=== PATIENT | female | born 1960 | race Caucasian/White ===

== ENCOUNTER 2018-10-29 12:16 | Emergency (ER) | payer BC, SELFPAY ==
--- NOTE | 2018-10-29 13:20 | RAD REPORT ---
EXAM DESCRIPTION: CT - Head Brain Wo Cont - 10/29/2018 1:14 pm CLINICAL HISTORY: HEADACHE Hypertension, headache. COMPARISON: No comparisons TECHNIQUE: All CT scans are performed using dose optimization technique as appropriate and may inclu de automated exposure control or mA/KV adjustment according to patient size. FINDINGS: No intracranial hemorrhage, hydrocephalus or extra-axial fluid collection.No areas of brai n edema or evidence of midline shift. The paranasal sinuses and mastoids are clear. The calvarium is intact. IMPRESSION: No acute intracranial abnormality.
[2018-10-29] MEDS ORDERED: cloNIDine HCl 0.1 MG TAB ONE (13:27)
--- NOTE | 2018-10-29 13:49 | RAD REPORT ---
EXAM DESCRIPTION: RAD - Chest Single View - 10/29/2018 1:24 pm CLINICAL HISTORY: hypertension Chest pain. COMPARISON: Chest Pa And Lat (2 Views) dated 12/03/2016 FINDINGS: Portable technique limits examination quality. The lungs are grossly clear. The heart is normal in size. No displaced fractures. IMPRESSION: No acute intrathoracic process suspected.
[2018-10-29 14:17] LABS: Absolute Lymphocytes (CBC) 1.4 K/uL (0.7-4.9); Absolute Monocytes 0.5 K/uL (0.1-1.3); Absolute Neutrophil 2.3 K/uL (1.8-8.0); Basophils % 0.7 % (0-1.3); Eosinophils % 1.3 % (0-4.4); Hematocrit 38.2 % (36.0-45.0); Lymphocytes % 32.8 % (15.3-44.8); MCH 32.7 pg (27.0-35.0); MCV 95.2 fL (80-100); MPV 9.3 fL (7.6-11.3); Monocytes % 10.8 % (3.3-12.3); Protime INR 0.99; RBC Red Blood Cell Count 4.02 M/uL (3.86-4.86)
[2018-10-29 14:30] LABS: BUN Blood Urea Nitrogen 14 mg/dL (7-18); Bicarbonate 27 mmol/L (21-32); Glucose Level 85 mg/dL (74-106); NT PRO-BNP 202 pg/mL (<125); Potassium 3.6 mmol/L (3.5-5.1); Sodium Level 141 mmol/L (136-145); Troponin (Emerg Dept Use Only) < 0.02 ng/mL (0.0-0.045)
--- NOTE | 2018-10-29 16:28 | ER ---
Nurse's Notes [facility] Name: Dara Giron Age: 57 yrs Sex: Female : 1960 Arrival Date: 10/29/2018 Time: 12:21 Bed 5 Private MD: None, None Diagnosis: Essential (primary) hypertension Presentation: 10/29 12:43 Presenting complaint: Patient states: "I went to a clinic for a pap smear and they said aa5 to come to the ER because my blood pressure was too high". Pt reports BP reading of 188/119 and 191/130. Pt c/o headache. Transition of care: patient was not received from another setting of care. Onset of symptoms was October 29, 2018. Risk Assessment: Do you want to hurt yourself or someone else? Patient reports no desire to harm self or others. Initial Sepsis Screen: Does the patient meet any 2 criteria? No. Patient's initial sepsis screen is negative. Does the patient have a suspected source of infection? No. Patient's initial sepsis screen is negative. Care prior to arrival: None. 12:43 Method Of Arrival: Ambulatory aa5 12:43 Acuity: LUI 3 aa5 Historical: - Allergies: 12:46 No Known Allergies; aa5 - Home Meds: 12:46 Paxil Oral for Obsessive-Compulsive Disorder [Active]; aa5 - PMHx: 12:46 OCD; aa5 - PSHx: 12:46 right foot with screws and plates; aa5 - Immunization history:: Adult Immunizations unknown. - Social history:: Smoking status: Patient uses tobacco products, smokes one-half pack cigarettes per day. - Ebola Screening: : No symptoms or risks identified at this time. Screenin:10 Abuse screen: Denies threats or abuse. Denies injuries from another. Nutritional jl7 screening: No deficits noted. Tuberculosis screening: No symptoms or risk factors identified. Fall Risk IV access (20 points). Total Leach Fall Scale indicates No Risk (0-24 pts). Assessment: 13:10 General: Appears in no apparent distress. uncomfortable, Behavior is cooperative, jl7 appropriate for age, anxious. Pain: Complains of pain in Headache Pain currently is 5 out of 10 on a pain scale. Neuro: Level of Consciousness is awake, alert, obeys commands, Oriented to person, place, time, situation, Channel Process Supervisor are equal bilaterally Moves all extremities. Full function Gait is steady, Speech is normal, Facial symmetry appears normal. Cardiovascular: Patient's skin is warm and dry. Respiratory: Airway is patent Respiratory effort is even, unlabored, Respiratory pattern is regular, symmetrical. GI: No signs and/or symptoms were reported involving the gastrointestinal system. : No signs and/or symptoms were reported regarding the genitourinary system. EENT: No signs and/or symptoms were reported regarding the EENT system. Derm: Skin is pink, warm \\T\\ dry. Musculoskeletal: No signs and/or symptoms reported regarding the musculoskeletal system. 14:07 Reassessment: Patient appears in no apparent distress at this time. No changes from jl7 previously documented assessment. Patient and/or family updated on plan of care and expected duration. Pain level reassessed. Patient is alert, oriented x 3, equal unlabored respirations, skin warm/dry/pink. Vital Signs: 12:47 BP 160 / 113; Pulse 79; Resp 16 S; Temp 98.3(TE); Pulse Ox 100% on R/A; Weight 50.8 kg aa5 (R); Height 5 ft. 2 in. (157.48 cm) (R); Pain 5/10; 13:10 BP 210 / 111; Pulse 76; Resp 16 S; Pulse Ox 99% on R/A; jl7 14:06 BP 167 / 93; Pulse 72; Resp 16 S; Pulse Ox 97% on R/A; jl7 16:00 BP 128 / 84; Pulse 70; Resp 18; Pulse Ox 100% on R/A; hj 12:47 Body Mass Index 20.48 (50.80 kg, 157.48 cm) aa5 ED Course: 12:21 Patient arrived in ED. mr 12:21 None, None is Private Physician. mr 12:43 Arm band placed on. aa5 12:45 Triage completed. aa5 12:48 Neeta Vera FNP-C is [facility]. kb 12:48 Pollo Drake MD is Attending Physician. kb 12:49 Manjinder Rain RN is Primary Nurse. jl7 13:08 Missed attempt(s): 22 gauge in right hand. Bleeding controlled, band aid applied, dh3 catheter tip intact. 13:10 Patient has correct armband on for positive identification. Placed in gown. Bed in low jl7 position. Call light in reach. Side rails up X2. resident doctor on. Pulse ox on. NIBP on. Warm blanket given. 13:10 EKG done, by ED staff, reviewed by Neeta DE LA TORRE. [facility] 13:13 CT Head Brain wo Cont In Process Unspecified. EDMS 13:20 CT completed. Patient tolerated procedure well. Patient moved to CT via wheelchair. vr Patient moved to radiology via wheelchair. 13:22 X-ray completed. Portable x-ray completed in exam room. Patient tolerated procedure mh1 well. 13:23 XRAY Chest (1 view) In Process Unspecified. EDMS 13:48 Missed attempt(s): 24 gauge in left hand. jl7 15:58 Repeat lab(s) drawn. by me, sent to lab. [facility] 16:02 REPEAT EKG WAS DONE. [facility] 16:37 No provider procedures requiring assistance completed. Patient did not have IV access hj during this emergency room visit. Administered Medications: 13:38 Drug: cloNIDine 0.2 mg Route: PO; 7 14:06 Follow up: Response: No adverse reaction; Blood pressure is lowered [facility] Outcome: 16:27 Discharge ordered by . kb 16:37 Discharged to home ambulatory. 16:37 Condition: stable 16:37 Discharge instructions given to patient, Instructed on discharge instructions, follow up and referral plans. medication usage, Demonstrated understanding of instructions, follow-up care, medications, Prescriptions given X 1. 16:37 Patient left the ED. Signatures: Dispatcher [employer] EDNC Neeta Vera FNP-C FNP-Pamela Karlene Saini Martha 1 Laura Bullock, RN RN aa5 Marlen Anthony Irineo Cruz RN RN hj Leal, Jahala, RN RN jl7 Salima Kaufman [facility] Monik Hogue [facility]
--- NOTE | 2018-10-29 16:28 | EDPHYS ---
Physician Documentation [facility] Name: Dara Giron Age: 57 yrs Sex: Female : 1960 Arrival Date: 10/29/2018 Time: 12:21 Bed 5 Private MD: None, None ED Physician Pollo Drake HPI: 10/29 15:29 This 57 yrs old Female presents to ER via Ambulatory with complaints of High kb Blood Pressure. 15:29 The patient has elevated blood pressure and discovered this at a physician's office, kb and sent to the emergency department for evaluation. Onset: The symptoms/episode began/occurred today. Associated signs and symptoms: Pertinent positives: headache, Pertinent negatives: chest pain, dizziness, dyspnea, lightheadedness, nausea, visual changes, vomiting, weakness. The patient has not experienced similar symptoms in the past. The patient has been recently seen by a physician: with different complaint(s). Pt went to have PAP smear today and her BP was high when they checked it so they sent her here for evaluation. States she has had a headache today, but thought it was because she hadn't eaten today. Pt had hypertension 20 years ago when she smoked and drank, but was able to get off of her medication when she became sober. . Historical: - Allergies: 12:46 No Known Allergies; aa5 - Home Meds: 12:46 Paxil Oral for Obsessive-Compulsive Disorder [Active]; aa5 - PMHx: 12:46 OCD; aa5 - PSHx: 12:46 right foot with screws and plates; aa5 - Immunization history:: Adult Immunizations unknown. - Social history:: Smoking status: Patient uses tobacco products, smokes one-half pack cigarettes per day. - Ebola Screening: : No symptoms or risks identified at this time. ROS: 15:28 Constitutional: Negative for fever, chills, and weight loss, ENT: Negative for injury, kb pain, and discharge, Neck: Negative for injury, pain, and swelling, Cardiovascular: Negative for chest pain, palpitations, and edema, Respiratory: Negative for shortness of breath, cough, wheezing, and pleuritic chest pain, Abdomen/GI: Negative for abdominal pain, nausea, vomiting, diarrhea, and constipation, Back: Negative for injury and pain, : Negative for injury, bleeding, discharge, and swelling, MS/Extremity: Negative for injury and deformity, Skin: Negative for injury, rash, and discoloration. 15:28 Neuro: Positive for headache, Negative for altered mental status, dizziness, gait disturbance, hearing loss, loss of consciousness, numbness, seizure activity, speech changes, syncope, near syncope, tingling, tinnitus, tremor, visual changes, weakness. Exam: 15:29 Constitutional: This is a well developed, well nourished patient who is awake, alert, kb and in no acute distress. Head/Face: Normocephalic, atraumatic. Eyes: Pupils equal round and reactive to light, extra-ocular motions intact. Lids and lashes normal. Conjunctiva and sclera are non-icteric and not injected. Cornea within normal limits. Periorbital areas with no swelling, redness, or edema. ENT: Nares patent. No nasal discharge, no septal abnormalities noted. Tympanic membranes are normal and external auditory canals are clear. Oropharynx with no redness, swelling, or masses, exudates, or evidence of obstruction, uvula midline. Mucous membranes moist. Neck: Trachea midline, no thyromegaly or masses palpated, and no cervical lymphadenopathy. Supple, full range of motion without nuchal rigidity, or vertebral point tenderness. No Meningismus. Chest/axilla: Normal chest wall appearance and motion. Nontender with no deformity. No lesions are appreciated. Cardiovascular: Regular rate and rhythm with a normal S1 and S2. No gallops, murmurs, or rubs. Normal PMI, no JVD. No pulse deficits. Respiratory: Lungs have equal breath sounds bilaterally, clear to auscultation and percussion. No rales, rhonchi or wheezes noted. No increased work of breathing, no retractions or nasal flaring. Abdomen/GI: Soft, non-tender, with normal bowel sounds. No distension or tympany. No guarding or rebound. No evidence of tenderness throughout. Back: No spinal tenderness. No costovertebral tenderness. Full range of motion. Skin: Warm, dry with normal turgor. Normal color with no rashes, no lesions, and no evidence of cellulitis. MS/ Extremity: Pulses equal, no cyanosis. Neurovascular intact. Full, normal range of motion. Neuro: Awake and alert, GCS 15, oriented to person, place, time, and situation. Cranial nerves II-XII grossly intact. Motor strength 5/5 in all extremities. Sensory grossly intact. Cerebellar exam normal. Normal gait. Vital Signs: 12:47 BP 160 / 113; Pulse 79; Resp 16 S; Temp 98.3(TE); Pulse Ox 100% on R/A; Weight 50.8 kg aa5 (R); Height 5 ft. 2 in. (157.48 cm) (R); Pain 5/10; 13:10 BP 210 / 111; Pulse 76; Resp 16 S; Pulse Ox 99% on R/A; jl7 14:06 BP 167 / 93; Pulse 72; Resp 16 S; Pulse Ox 97% on R/A; jl7 16:00 BP 128 / 84; Pulse 70; Resp 18; Pulse Ox 100% on R/A; hj 12:47 Body Mass Index 20.48 (50.80 kg, 157.48 cm) aa5 MDM: 12:48 Patient medically screened. kb 15:28 Data reviewed: vital signs, nurses notes. Data interpreted: Pulse oximetry: on room air kb is 97 %. Interpretation: normal. Counseling: I had a detailed discussion with the patient and/or guardian regarding: the historical points, exam findings, and any diagnostic results supporting the discharge/admit diagnosis, lab results, radiology results, the need for outpatient follow up, a family practitioner, to return to the emergency department if symptoms worsen or persist or if there are any questions or concerns that arise at home. 12 12:56 Order name: Basic Metabolic Panel; Complete Time: 14:33 kb 10/29 12:56 Order name: CBC with Diff; Complete Time: 14:29 kb 10/29 12:56 Order name: Magnesium; Complete Time: 14:33 kb 10/29 12:56 Order name: NT PRO-BNP; Complete Time: 14:33 kb 12 12:56 Order name: PT-INR; Complete Time: 14:24 kb 10/29 12:56 Order name: Troponin (emerg Dept Use Only); Complete Time: 14:33 kb 10/29 12:56 Order name: XRAY Chest (1 view); Complete Time: 13:53 kb 10/29 12:56 Order name: EKG; Complete Time: 12:56 kb 10/29 12:56 Order name: Cardiac monitoring; Complete Time: 13:13 kb 10/29 12:56 Order name: EKG - Nurse/Tech; Complete Time: 13:13 kb 10/29 12:56 Order name: CT Head Brain wo Cont; Complete Time: 13:26 kb 10/29 15:27 Order name: Troponin (emerg Dept Use Only); Complete Time: 16:27 kb 10/29 15:27 Order name: EKG; Complete Time: 15:28 kb 10/29 12:56 Order name: IV Saline Lock; Complete Time: 15:57 kb 10/29 12:56 Order name: Labs collected and sent; Complete Time: 13:13 kb 10/29 12:56 Order name: O2 Per Protocol; Complete Time: 13:13 kb 10/29 12:56 Order name: O2 Sat Monitoring; Complete Time: 13:13 kb 10/29 15:27 Order name: EKG - Nurse/Tech; Complete Time: 15:56 kb Administered Medications: 13:38 Drug: cloNIDine 0.2 mg Route: PO; [facility] 14:06 Follow up: Response: No adverse reaction; Blood pressure is lowered jl7 Disposition: 10/29/18 16:27 Discharged to Home. Impression: Essential (primary) hypertension. - Condition is Stable. - Discharge Instructions: Hypertension, [id number], DASH Eating Plan, Managing Your Hypertension. - Prescriptions for Hydrochlorothiazide 12.5 mg Oral Tablet - take 1 tablet by ORAL route once daily; 30 tablet. - Medication Reconciliation Form, Thank You Letter, Antibiotic Education, Prescription Opioid Use form. - Follow up: Emergency Department; When: As needed; Reason: Worsening of condition. Follow up: Private Physician; When: 2 - 3 days; Reason: Recheck today's complaints, Continuance of care, Re-evaluation by your physician. Addendum: 11/04/2018 01:35 Co-signature as Attending Physician, Pollo Drake MD. r n Signatures: Dispatcher [employer] EDNeeta Booth, PSYCHOLOGIST SOCIAL-C PSYCHOLOGIST SOCIAL-CkPollo Ruiz MD MD rn Calderon, Audri, RN RN aa5 Irineo Cruz RN Manjinder Go RN RN jl7 Corrections: (The following items were deleted from the chart) 10/29 16:37 16:27 10/29/2018 16:27 Discharged to Home. Impression: Essential (primary) hj hypertension. Condition is Stable. Discharge Instructions: Hypertension, [id number], DASH Eating Plan, Managing Your Hypertension. Prescriptions for Hydrochlorothiazide 12.5 mg Oral Tablet - take 1 tablet by ORAL route once daily; 30 tablet. and Forms are Medication Reconciliation Form, Thank You Letter, Antibiotic Education, Prescription Opioid Use. Follow up: Emergency Department; When: As needed; Reason: Worsening of condition. Follow up: Private Physician; When: 2 - 3 days; Reason: Recheck today's complaints, Continuance of care, Re-evaluation by your physician. kb
--- NOTE | 2018-10-30 05:15 | EKG ---
Test Date: 2018-10-29 Test Time: 15:35:22 Integrity Specialist: NOEL MEASUREMENT RESULTS: Intervals: Rate: 61 ME: 180 QRSD: 80 QT: 432 QTc: 434 [place]: P: 64 ME: 180 QRS: 29 T: 36 INTERPRETIVE STATEMENTS: Normal sinus rhythm Normal ECG Compared to ECG 10/29/2018 13:05:18 no significant change from previous ECG Electronically Signed On 10-30-18 05:15:01 ELECTRIC REFRIGERATOR SERVICER by Jacinto Leo
--- NOTE | 2018-10-30 05:17 | EKG ---
Test Date: 2018-10-29 Test Time: 13:05:18 Pourer Bull Ladle: ULISES MEASUREMENT RESULTS: Intervals: Rate: 75 WI: 172 QRSD: 74 QT: 386 QTc: 431 [place]: P: 67 WI: 172 QRS: 23 T: 46 INTERPRETIVE STATEMENTS: Normal sinus rhythm Normal ECG Compared to ECG 12/03/2016 12:15:13 Atrial abnormality no longer present Myocardial infarct finding no longer present Electronically Signed On 10-30-18 05:16:55 COBOL ENGINEER by Jacinto Leo
== END 2018-10-29 16:37 | disposition home or self-care (01) ==
LOC: ER 12:16
DX: I10 Essential (primary) hypertension (principal); F17.210 Nicotine dependence, cigarettes, uncomplicated; F42.9 Obsessive-compulsive disorder, unspecified
CPT/HCPCS: 36415; 70450; 71045; 80048; 83735; 83880; 84484; 85025; 85610; 93005; 99285

== ENCOUNTER 2018-11-03 14:41 | Emergency (ER) | payer SELFPAY ==
--- NOTE | 2018-11-03 15:30 | EKG ---
Test Date: 2018-11-03 Test Time: 15:03:04 Programmer Numerical Control: CHING MEASUREMENT RESULTS: Intervals: Rate: 68 ID: [id number] QRSD: 84 QT: 434 QTc: 461 [place]: P: 74 ID: [id number] QRS: 58 T: 64 INTERPRETIVE STATEMENTS: Normal sinus rhythm Normal ECG Compared to ECG 10/29/2018 15:35:22 No significant changes Electronically Signed On 11-03-18 15:30:07 VENTILATION MECHANIC by Jacinto Leo
[2018-11-03] MEDS ORDERED: NA CHLORIDE 0.9% 1,000 ML ONE (15:39)
[2018-11-03 15:51] LABS: Absolute Lymphocytes (CBC) 1.4 K/uL (0.7-4.9); Absolute Monocytes 0.6 K/uL (0.1-1.3); Absolute Neutrophil 3.2 K/uL (1.8-8.0); Basophils % 0.7 % (0-1.3); Eosinophils % 0.8 % (0-4.4); Hematocrit 37.1 % (36.0-45.0); Lymphocytes % 26.7 % (15.3-44.8); MCH 32.5 pg (27.0-35.0); MCV 96.2 fL (80-100); RBC Red Blood Cell Count 3.86 M/uL (3.86-4.86)
[2018-11-03 16:03] LABS: ALT/SGPT 29 U/L (12-78); AST/SGOT 34 U/L (15-37); Albumin 3.8 g/dL (3.4-5.0); Alkaline Phosphatase 88 U/L (45-117); BUN Blood Urea Nitrogen 19 mg/dL (7-18); Bicarbonate 29 mmol/L (21-32); Bilirubin Direct 0.2 mg/dL (0-0.2); Bilirubin Total 0.6 mg/dL (0.2-1.0); Glucose Level 106 mg/dL (74-106); Potassium 3.9 mmol/L (3.5-5.1); Protein, Total 8.5 g/dL (6.4-8.2); Sodium Level 136 mmol/L (136-145); Troponin (Emerg Dept Use Only) < 0.02 ng/mL (0.0-0.045)
[2018-11-03 16:16] LABS: Urine Blood 2+ (NEG); Urine Glucose NEGATIVE (NEG); Urine Protein 1+ (NEG); Urine Specific Gravity 1.025 (1.005-1.030); Urine pH 5.5 (5.0-7.0)
--- NOTE | 2018-11-03 16:21 | ER ---
Nurse's Notes [facility] Name: Dara Giron Age: 57 yrs Sex: Female : 1960 Arrival Date: 11/03/2018 Time: 14:42 Bed 20 Private MD: Diagnosis: Hypotension due to drugs-oleksandr inhibitor and diuretic Presentation: 11/03 14:42 Presenting complaint: Patient states: pt complaints of low BP, 82/60 manual; 79/60- hj monitor; she was started on lisinopril because of HTN and now her BP drops; reports dizziness; HR- 84; reports back pain all the way to the neck;negative NIH score;. Transition of care: patient was not received from another setting of care. Onset of symptoms was November 03, 2018. Risk Assessment: Do you want to hurt yourself or someone else? Patient reports no desire to harm self or others. Initial Sepsis Screen: Does the patient meet any 2 criteria? No. Patient's initial sepsis screen is negative. Does the patient have a suspected source of infection? No. Patient's initial sepsis screen is negative. Care prior to arrival: None. 14:42 Method Of Arrival: EMS: [facility] 14:42 Acuity: LUI 3 hj Triage Assessment: 14:46 General: Appears in no apparent distress. uncomfortable, slender, Behavior is calm, hj cooperative, appropriate for age. Pain: Complains of pain in back. EENT: No signs and/or symptoms were reported regarding the EENT system. Neuro: Level of Consciousness is awake, alert, obeys commands, Oriented to person, place, time, situation, Appropriate for age Reports dizziness. Cardiovascular: Capillary refill < 3 seconds Patient's skin is warm and dry. Respiratory: Airway is patent Respiratory effort is even, unlabored, Respiratory pattern is regular, symmetrical. GI: No signs and/or symptoms were reported involving the gastrointestinal system. : No signs and/or symptoms were reported regarding the genitourinary system. Derm: No signs and/or symptoms reported regarding the dermatologic system. Musculoskeletal: Reports pain in back. Historical: - Allergies: 14:45 No Known Allergies; hj - Home Meds: 14:45 lisinopril-hydrochlorothiazide 10-12.5 mg oral tab 1 tab once daily [Active]; hj - PMHx: 14:45 Hypertension; ocd; hj - PSHx: 14:45 right foot with screws and plates; hj - Immunization history:: Adult Immunizations up to date. - Social history:: Smoking status: Patient uses tobacco products, Patient/guardian denies using alcohol. - Ebola Screening: : Patient negative for fever greater than or equal to 101.5 degrees Fahrenheit, and additional compatible Ebola Virus Disease symptoms Patient denies exposure to infectious person Patient denies travel to an Ebola-affected area in the 21 days before illness onset. Screenin:47 Abuse screen: Denies threats or abuse. Denies injuries from another. Nutritional hj screening: No deficits noted. Tuberculosis screening: No symptoms or risk factors identified. 14:47 Fall Risk Secondary diagnosis (15 points). hj Assessment: 14:45 General: Appears in no apparent distress. uncomfortable, Behavior is calm, cooperative, hj appropriate for age. Pain: Denies pain. Neuro: Level of Consciousness is awake, alert, obeys commands, Oriented to person, place, time, situation, Appropriate for age Reports dizziness. Cardiovascular: Capillary refill < 3 seconds Patient's skin is warm and dry. Respiratory: Airway is patent Respiratory effort is even, unlabored, Respiratory pattern is regular, symmetrical. GI: No signs and/or symptoms were reported involving the gastrointestinal system. : No signs and/or symptoms were reported regarding the genitourinary system. EENT: No signs and/or symptoms were reported regarding the EENT system. Derm: No signs and/or symptoms reported regarding the dermatologic system. Musculoskeletal: No signs and/or symptoms reported regarding the musculoskeletal system. 16:49 Reassessment: Patient and/or family updated on plan of care and expected duration. Pain hj level reassessed. Patient is alert, oriented x 3, equal unlabored respirations, skin warm/dry/pink. Patient states feeling better. Patient states symptoms have improved. Vital Signs: 14:47 BP 91 / 58; Pulse 78; Resp 16; Temp 98.1(O); Pulse Ox 98% on R/A; Weight 50.8 kg; hj Height 5 ft. 2 in. (157.48 cm); 15:21 BP 104 / 68; Pulse 75; Resp 18; Pulse Ox 99% on R/A; hj 15:36 BP 104 / 68 Supine; Pulse 72; Resp 18; Pulse Ox 100% on R/A; hj 15:36 BP 108 / 78 Sitting; Pulse 71; Resp 18; Pulse Ox 100% on R/A; hj 15:36 BP 99 / 69 Standing; Pulse 75; Resp 18; Pulse Ox 100% on R/A; hj 16:06 BP 107 / 69; Pulse 70; Resp 18; Pulse Ox 99% on R/A; hj 16:32 BP 118 / 78 Supine; Pulse 68; Resp 18; Pulse Ox 100% on R/A; hj 16:32 BP 129 / 81 Sitting; Pulse 70; Resp 18; Pulse Ox 100% on R/A; hj 16:32 BP 149 / 91 Standing; Pulse 75; Resp 18; Pulse Ox 100% on R/A; hj 14:47 Body Mass Index 20.48 (50.80 kg, 157.48 cm) hj ED Course: 14:42 Patient arrived in ED. hj 14:45 Triage completed. hj 14:47 Arm band placed on right wrist. hj 14:47 Patient has correct armband on for positive identification. Placed in gown. Bed in low hj position. Call light in reach. Side rails up X 1. 14:51 Irineo Cruz RN is Primary Nurse. hj 14:53 Mickey Tapia NP is PHCP. pm1 14:53 Kris France MD is Attending Physician. pm1 15:13 EKG done, by environmental technical officer. reviewed by Mickey Tapia NP. sm3 15:30 Initial lab(s) drawn, by ED staff, sent to lab. Inserted saline lock: 22 gauge in right hj forearm, using aseptic technique. ,using aseptic technique. AAC Blood collected. 17:02 No provider procedures requiring assistance completed. IV discontinued, intact, hj bleeding controlled, No redness/swelling at site. Pressure dressing applied. Administered Medications: 15:29 Drug: NS 0.9% 500 ml Route: IV; Rate: bolus; Site: right forearm; hj 16:33 Follow up: IV Status: Completed infusion hj 16:17 Drug: NS 0.9% 500 ml Route: IV; Rate: bolus; Site: right forearm; hj 16:33 Follow up: IV Status: Completed infusion hj Outcome: 16:21 Discharge ordered by . pm1 17:02 Discharged to home ambulatory, with friend. hj 17:02 Condition: stable 17:02 Discharge instructions given to patient, friend, Instructed on discharge instructions, follow up and referral plans. Demonstrated understanding of instructions, follow-up care. 17:02 Patient left the ED. Signatures: Irineo Cruz RN RN hj Mickey Tapia, EROS MECHANIC SOUND TECHNICIAN pm1 Monik Hogue sm3 Corrections: (The following items were deleted from the chart) 14:50 14:42 Presenting complaint: Patient states: pt complaints of low BP, 82/60 manual; hj 79/60- monitor; she was started on lisinopril because of HTN and now her BP drops; reports dizziness; HR- 84; negative NIH score; 14:50 14:47 Pulse 78bpm; Resp 16bpm; Pulse Ox 98% RA; Temp 98.1F Oral; 50.8 kg; Height 5 ft. hj 2 in.; BMI: 20.4; hj
--- NOTE | 2018-11-03 16:22 | EDPHYS ---
Physician Documentation [facility] Name: Dara Giron Age: 57 yrs Sex: Female : 1960 Arrival Date: 11/03/2018 Time: 14:42 Bed 20 Private MD: ED Physician Kris France HPI: 11/03 16:12 This 57 yrs old Female presents to ER via EMS with complaints of Blood pm1 Pressure Problem. 16:12 Patient with low blood pressure at work after taking additional blood pressure pm1 medication prescribed today. Patient was seen here in the ER 5 days ago for hypertension. Prescribed HCTZ 12.5 mg PO daily. Followed up with a clinic today and was prescribed lisinopril 10 mg PO daily due to blood pressure remaining high. About 1.5 hours after taking lisinopril she started feeling hot flashes. She checked her blood pressure while she was at work and her systolic pressure was low. No chest pain, shortness of breath, or focal weakness. Historical: - Allergies: 14:45 No Known Allergies; hj - Home Meds: 14:45 lisinopril-hydrochlorothiazide 10-12.5 mg oral tab 1 tab once daily [Active]; hj - PMHx: 14:45 Hypertension; ocd; hj - PSHx: 14:45 right foot with screws and plates; hj - Immunization history:: Adult Immunizations up to date. - Social history:: Smoking status: Patient uses tobacco products, Patient/guardian denies using alcohol. - Ebola Screening: : Patient negative for fever greater than or equal to 101.5 degrees Fahrenheit, and additional compatible Ebola Virus Disease symptoms Patient denies exposure to infectious person Patient denies travel to an Ebola-affected area in the 21 days before illness onset. ROS: 16:12 Constitutional: Negative for fever, chills, and weight loss, Eyes: Negative for injury, pm1 pain, redness, and discharge, ENT: Negative for injury, pain, and discharge, Neck: Negative for injury, pain, and swelling, Cardiovascular: Negative for chest pain, palpitations, and edema, Respiratory: Negative for shortness of breath, cough, wheezing, and pleuritic chest pain, Abdomen/GI: Negative for abdominal pain, nausea, vomiting, diarrhea, and constipation, Back: Negative for injury and pain, : Negative for injury, bleeding, discharge, and swelling, MS/Extremity: Negative for injury and deformity, Skin: Negative for injury, rash, and discoloration, Neuro: Negative for headache, weakness, numbness, tingling, and seizure. Exam: 16:12 Constitutional: This is a well developed, well nourished patient who is awake, alert, pm1 and in no acute distress. Head/Face: Normocephalic, atraumatic. Eyes: Pupils equal round and reactive to light, extra-ocular motions intact. Lids and lashes normal. Conjunctiva and sclera are non-icteric and not injected. Cornea within normal limits. Periorbital areas with no swelling, redness, or edema. ENT: Nares patent. No nasal discharge, no septal abnormalities noted. Tympanic membranes are normal and external auditory canals are clear. Oropharynx with no redness, swelling, or masses, exudates, or evidence of obstruction, uvula midline. Mucous membranes moist. Neck: Trachea midline, no thyromegaly or masses palpated, and no cervical lymphadenopathy. Supple, full range of motion without nuchal rigidity, or vertebral point tenderness. No Meningismus. Chest/axilla: Normal chest wall appearance and motion. Nontender with no deformity. No lesions are appreciated. Cardiovascular: Regular rate and rhythm with a normal S1 and S2. No gallops, murmurs, or rubs. Normal PMI, no JVD. No pulse deficits. Respiratory: Lungs have equal breath sounds bilaterally, clear to auscultation and percussion. No rales, rhonchi or wheezes noted. No increased work of breathing, no retractions or nasal flaring. Abdomen/GI: Soft, non-tender, with normal bowel sounds. No distension or tympany. No guarding or rebound. No evidence of tenderness throughout. Back: No spinal tenderness. No costovertebral tenderness. Full range of motion. Skin: Warm, dry with normal turgor. Normal color with no rashes, no lesions, and no evidence of cellulitis. MS/ Extremity: Pulses equal, no cyanosis. Neurovascular intact. Full, normal range of motion. 16:12 Neuro: Orientation: is normal, Cranial nerves: CN II- XII are normal as tested, Cerebellar function: normal finger to nose testing, Motor: is normal, moves all fours, Sensation: is normal, no obvious gross deficits. Vital Signs: 14:47 BP 91 / 58; Pulse 78; Resp 16; Temp 98.1(O); Pulse Ox 98% on R/A; Weight 50.8 kg; hj Height 5 ft. 2 in. (157.48 cm); 15:21 BP 104 / 68; Pulse 75; Resp 18; Pulse Ox 99% on R/A; hj 15:36 BP 104 / 68 Supine; Pulse 72; Resp 18; Pulse Ox 100% on R/A; hj 15:36 BP 108 / 78 Sitting; Pulse 71; Resp 18; Pulse Ox 100% on R/A; hj 15:36 BP 99 / 69 Standing; Pulse 75; Resp 18; Pulse Ox 100% on R/A; hj 16:06 BP 107 / 69; Pulse 70; Resp 18; Pulse Ox 99% on R/A; hj 16:32 BP 118 / 78 Supine; Pulse 68; Resp 18; Pulse Ox 100% on R/A; hj 16:32 BP 129 / 81 Sitting; Pulse 70; Resp 18; Pulse Ox 100% on R/A; hj 16:32 BP 149 / 91 Standing; Pulse 75; Resp 18; Pulse Ox 100% on R/A; hj 14:47 Body Mass Index 20.48 (50.80 kg, 157.48 cm) hj MDM: 15:00 Patient medically screened. pm1 16:18 Data reviewed: vital signs. Data interpreted: Pulse oximetry: on room air is 99 %. pm1 Interpretation: normal. Counseling: I had a detailed discussion with the patient and/or guardian regarding: the historical points, exam findings, and any diagnostic results supporting the discharge/admit diagnosis, lab results, the need for outpatient follow up, to return to the emergency department if symptoms worsen or persist or if there are any questions or concerns that arise at home. 11/03 15:03 Order name: LFT's; Complete Time: 16:11 pm1 11/03 15:03 Order name: Basic Metabolic Panel; Complete Time: 16:11 pm1 11/03 15:03 Order name: CBC with Diff; Complete Time: 16:11 pm1 11/03 15:03 Order name: Troponin (emerg Dept Use Only); Complete Time: 16:11 pm1 11/03 16:01 Order name: Urine Dipstick--Ancillary (enter results); Complete Time: 16:18 bd 11/03 15:03 Order name: Orthostatic Blood Pressure; Complete Time: 15:40 pm1 11/03 15:03 Order name: EKG; Complete Time: 15:04 pm1 11/03 15:03 Order name: Cardiac monitoring; Complete Time: 15:04 pm1 11/03 15:03 Order name: EKG - Nurse/Tech; Complete Time: 15:04 pm1 11/03 15:03 Order name: IV Saline Lock; Complete Time: 15:33 pm1 11/03 15:03 Order name: Labs collected and sent; Complete Time: 15:33 pm1 11/03 15:03 Order name: O2 Per Protocol; Complete Time: 15:05 pm1 11/03 15:03 Order name: O2 Sat Monitoring; Complete Time: 15:05 pm1 Administered Medications: 15:29 Drug: NS 0.9% 500 ml Route: IV; Rate: bolus; Site: right forearm; hj 16:33 Follow up: IV Status: Completed infusion hj 16:17 Drug: NS 0.9% 500 ml Route: IV; Rate: bolus; Site: right forearm; hj 16:33 Follow up: IV Status: Completed infusion hj Disposition: 17:23 Co-signature as Attending Physician, Kris France MD. Disposition: 11/03/18 16:21 Discharged to Home. Impression: Hypotension due to drugs - oleksandr inhibitor and diuretic . - Condition is Stable. - Discharge Instructions: Hypotension. - Medication Reconciliation Form, Thank You Letter form. - Follow up: Emergency Department; When: As needed; Reason: Worsening of condition. Follow up: Private Physician; When: 2 - 3 days; Reason: Recheck today's complaints, Continuance of care, Re-evaluation by your physician. - Problem is new. - Symptoms have improved. Signatures: Dispatcher [employer] EDIrineo Cruz RN RN hj Marinas, Patrick, EROS [employer] pm1 Kris France MD MD Corrections: (The following items were deleted from the chart) 17:02 16:21 11/03/2018 16:21 Discharged to Home. Impression: Hypotension due to drugs - oleksandr hj inhibitor and diuretic . Condition is Stable. Forms are Medication Reconciliation Form, Thank You Letter, Antibiotic Education, Prescription Opioid Use. Follow up: Emergency Department; When: As needed; Reason: Worsening of condition. Follow up: Private Physician; When: 2 - 3 days; Reason: Recheck today's complaints, Continuance of care, Re-evaluation by your physician. Problem is new. Symptoms have improved. pm1
== END 2018-11-03 17:02 | disposition home or self-care (01) ==
LOC: ER 14:41
DX: I95.2 Hypotension due to drugs (principal); Z72.0 Tobacco use
CPT/HCPCS: 36415; 80048; 80076; 81003; 84484; 85025; 93005; 96360; 99284; J7030

== ENCOUNTER 2018-12-30 13:54 | Emergency (ER) | payer SELFPAY ==
[2018-12-30] MEDS ORDERED: NA CHLORIDE 0.9% 1,000 ML ONE (14:20)
[2018-12-30] MEDS ORDERED: ONDANSETRON 4 MG/2 ML VIAL ONE (14:20)
[2018-12-30 14:33] LABS: Absolute Lymphocytes (CBC) 0.8 K/uL (0.7-4.9); Absolute Monocytes 0.5 K/uL (0.1-1.3); Basophils % 0.7 % (0-1.3); Eosinophils % 0.8 % (0-4.4); Hematocrit 37.5 % (36.0-45.0); Lymphocytes % 18.2 % (15.3-44.8); MPV 9.1 fL (7.6-11.3); Monocytes % 12.5 % (3.3-12.3); RBC Red Blood Cell Count 3.93 M/uL (3.86-4.86)
[2018-12-30 14:54] LABS: Albumin 3.6 g/dL (3.4-5.0); Bilirubin Direct 0.2 mg/dL (0-0.2); Bilirubin Total 0.4 mg/dL (0.2-1.0); Potassium 4.4 mmol/L (3.5-5.1); Protein, Total 8.3 g/dL (6.4-8.2)
--- NOTE | 2018-12-30 15:50 | RAD REPORT ---
EXAM DESCRIPTION: CT - Abdomen Pelvis W Contrast - 12/30/2018 3:35 pm CLINICAL HISTORY: Abdominal pain, diarrhea COMPARISON: None. TECHNIQUE: Biphasic, helical CT imaging of the abdomen and pelvis was performed following 100 ml non -ionic IV contrast. Oral contrast was given. All CT scans are performed using dose optimization technique as appropriate and may include automated exposure control or mA/KV adjustment according to patient size. FINDINGS: No suspicious findings in the lung bases. The liver, spleen, and pancreas show no suspicious findings. Gallbladder is normal size. Mild promine nce of the biliary tree noted. Duct stones and gallstones can be occult. Symmetric renal function is seen with no hydronephrosis or suspicious renal mass. No pyelonephritis o r acute parenchymal process. No bladder abnormalities. No adrenal abnormalities. No dilated bowel loops or bowel wall thickening. No appendicitis or other emergent GI finding identif iable. No free air, free fluid or pneumatosis. No hernia or bulky lymphadenopathy. The patient has a few periaortic lymph nodes up to 16 mm in size. These are nonspecific. A few small gastrohepatic lig ament lymph nodes are present as well. No uterus or right ovary suspicious finding. In the left adnexa there is a 7 centimeter homogeneous f luid attenuation cystic mass. A punctate calcification is seen along 1 wall. This is most likely a cy stadenoma. No suspicious bony findings. IMPRESSION: No obstruction, free air or surgically emergent finding. Mild prominence of the biliary tree without distended gallbladder. No obstructing mass seen. Duct sto pepe can be occult. Correlation is needed with any biliary clinical or laboratory abnormalities. Periaortic lymph nodes are present but nonspecific. No bulky lymphadenopathy. Patient has a 7 centimeter left adnexal cyst though this most likely cystadenoma.
--- NOTE | 2018-12-30 17:52 | ER ---
Nurse's Notes [facility] Name: Dara iGron Age: 58 yrs Sex: Female : 1960 Arrival Date: 12/30/2018 Time: 13:58 Bed 4 Private MD: Diagnosis: Diarrhea, unspecified;Dehydration Presentation: 12/30 13:58 Presenting complaint: Patient states: Diarrhea x 4 days ago. Pt reports she was at a aa5 meeting and started feeling weak, nauseated, faint, and diaphoretic. EMS reports pt's BP 80/40. 13:58 Transition of care: patient was not received from another setting of care. Onset of aa5 symptoms was December 30, 2018. Risk Assessment: Do you want to hurt yourself or someone else? Patient reports no desire to harm self or others. Initial Sepsis Screen: Does the patient meet any 2 criteria? Systolic BP < 90 mmHg. Does the patient have a suspected source of infection? No. Patient's initial sepsis screen is negative. Care prior to arrival: unsuccessful IV attempts. 13:58 Method Of Arrival: EMS: [facility] aa5 13:58 Acuity: LUI 2 aa5 Historical: - Allergies: 13:58 No Known Allergies; aa5 - Home Meds: 13:58 lisinopril-hydrochlorothiazide 10-12.5 mg Oral tab 1 tab once daily [Active]; aa5 - PMHx: 13:58 Hypertension; ocd; aa5 - PSHx: 13:58 right foot with screws and plates; aa5 - Immunization history:: Adult Immunizations unknown. - Family history:: not pertinent. - Ebola Screening: : No symptoms or risks identified at this time. - Social history:: Smoking status: unknown. - Hospitalizations: : No recent hospitalization is reported. Screenin:30 Abuse screen: Denies threats or abuse. Nutritional screening: No deficits noted. aa5 Tuberculosis screening: No symptoms or risk factors identified. Fall Risk None identified. Assessment: 14:00 General: Appears comfortable, Behavior is calm, cooperative. Pain: Denies pain. Neuro: aa5 Level of Consciousness is awake, alert, obeys commands, Oriented to person, place, time, situation. Cardiovascular: Heart tones S1 S2 present Rhythm is regular. Respiratory: Airway is patent Respiratory effort is even, unlabored, Respiratory pattern is regular, symmetrical, Breath sounds are clear bilaterally. GI: Abdomen is flat, non-distended, Bowel sounds present X 4 quads. Abd is soft and non tender X 4 quads. Reports bloody stool, Patient currently denies abdominal pain, bloody stool, nausea, vomiting. : No signs and/or symptoms were reported regarding the genitourinary system. EENT: No signs and/or symptoms were reported regarding the EENT system. Derm: Skin is pink, warm \T\ dry. Musculoskeletal: Range of motion: intact in all extremities. 15:00 Reassessment: Patient and/or family updated on plan of care and expected duration. Pain aa5 level reassessed. Patient is alert, oriented x 3, equal unlabored respirations, skin warm/dry/pink. Patient denies pain at this time. Pt sitting up in bed awaiting CT scan . 16:30 Reassessment: Patient and/or family updated on plan of care and expected duration. Pain aa5 level reassessed. Patient is alert, oriented x 3, equal unlabored respirations, skin warm/dry/pink. Awaiting disposition. . Vital Signs: 13:58 BP 80 / 40; Pulse 75; Resp 16 S; Temp 97.6(O); Pulse Ox 98% ; Pain 0/10; aa5 14:02 BP 100 / 68; Pulse 77; Resp 16 S; Pulse Ox 98% on R/A; aa5 14:30 BP 118 / 82; Pulse 69; Resp 16 S; Temp 97.5(O); Pulse Ox 98% on R/A; aa5 15:10 BP 143 / 90; Pulse 67; Resp 18 S; Pulse Ox 98% on R/A; Pain 0/10; aa5 16:30 BP 140 / 82; Pulse 68; Resp 16 S; Pulse Ox 99% on R/A; Pain 0/10; aa5 ED Course: 13:58 Patient arrived in ED. rn 13:58 Pollo Drake MD is Attending Physician. rn 13:58 Arm band placed on. aa5 13:58 Patient has correct armband on for positive identification. Placed in gown. Bed in low aa5 position. Call light in reach. Side rails up X2. salesperson furs on. Pulse ox on. NIBP on. 14:20 Initial lab(s) drawn, by me, sent to lab. Inserted saline lock: 20 gauge in right em1 wrist, using aseptic technique. Blood collected. 14:45 Laura Bullock, RN is Primary Nurse. aa5 15:06 Triage completed. aa5 15:23 Patient moved to AR. nj 15:35 CT completed. Patient tolerated procedure well. Patient moved back from AR. nj 15:42 CT Abd/Pelvis - W/Contrast In Process Unspecified. EDMS 18:11 No provider procedures requiring assistance completed. IV discontinued, intact, iw bleeding controlled, No redness/swelling at site. Pressure dressing applied. Administered Medications: 14:20 Drug: NS 0.9% 1000 ml Route: IV; Rate: 1000 ml; Site: right wrist; aa5 15:20 Follow up: IV Status: Completed infusion; IV Intake: 1000ml aa5 14:46 Not Given (Physician Discretion): Zofran 4 mg IVP once; over 2 minutes aa5 18:11 Drug: LoMOTIL 2 tabs Route: PO; iw Intake: 15:20 IV: 1000ml; Total: 1000ml. aa5 Outcome: 17:51 Discharge ordered by . rn 18:11 Discharged to home ambulatory, with family. iw 18:11 Condition: good 18:11 Discharge instructions given to patient, family, Instructed on discharge instructions, follow up and referral plans. Demonstrated understanding of instructions, follow-up care. 18:11 Patient left the ED. iw Signatures: Dispatcher [employer] Carrie Chang, RN MIMI Pollo Drake MD MD rn Martinez, Eric em1 Laura Bullock, MIMI RN Shantanu Chicas
--- NOTE | 2018-12-30 17:53 | EDPHYS ---
Physician Documentation [facility] Name: Dara Giron Age: 58 yrs Sex: Female : 1960 Arrival Date: 12/30/2018 Time: 13:58 Bed 4 Private MD: ED Physician Pollo Drake HPI: 12/30 14:36 This 58 yrs old Female presents to ER via Unassigned with complaints of rn diarrhea. 14:36 The patient presents to the emergency department with diarrhea. Onset: The rn symptoms/episode began/occurred 4 day(s) ago. Possible causes: unknown. The symptoms are aggravated by nothing. The symptoms are alleviated by nothing. Severity of symptoms: At their worst the symptoms were moderate in the emergency department the symptoms are unchanged. The patient has not experienced similar symptoms in the past. Reports diarrhea, weakness, began 4 days ago, no vomiting, + nausea, EMS states near syncopal episode, BP was low, has now improved. Reports generalized malaise and fatigue as well as headache.. Historical: - Allergies: 13:58 No Known Allergies; aa5 - Home Meds: 13:58 lisinopril-hydrochlorothiazide 10-12.5 mg Oral tab 1 tab once daily [Active]; aa5 - PMHx: 13:58 Hypertension; ocd; aa5 - PSHx: 13:58 right foot with screws and plates; aa5 - Immunization history:: Adult Immunizations unknown. - Family history:: not pertinent. - Ebola Screening: : No symptoms or risks identified at this time. - Social history:: Smoking status: unknown. - Hospitalizations: : No recent hospitalization is reported. ROS: 14:38 Constitutional: Negative for fever, chills, and weight loss, Eyes: Negative for injury, rn pain, redness, and discharge, Neck: Negative for injury, pain, and swelling, Cardiovascular: Negative for chest pain, palpitations, and edema, Respiratory: Negative for shortness of breath, cough, wheezing, and pleuritic chest pain, Abdomen/GI: Negative for abdominal pain, nausea, vomiting, and constipation, MS/Extremity: Negative for injury and deformity, Skin: Negative for injury, rash, and discoloration, Neuro: Negative for numbness, tingling, and seizure. Exam: 14:38 Constitutional: This is a well developed, well nourished patient who is awake, alert, rn and in no acute distress. Head/Face: Normocephalic, atraumatic. Eyes: Pupils equal round and reactive to light, extra-ocular motions intact. Lids and lashes normal. Conjunctiva and sclera are non-icteric and not injected. Cornea within normal limits. Periorbital areas with no swelling, redness, or edema. ENT: dry MM Neck: Trachea midline, no thyromegaly or masses palpated, and no cervical lymphadenopathy. Supple, full range of motion without nuchal rigidity, or vertebral point tenderness. No Meningismus. Cardiovascular: Regular rate and rhythm, No pulse deficits. Respiratory: Lungs have equal breath sounds bilaterally, clear to auscultation, No increased work of breathing, no retractions or nasal flaring. Abdomen/GI: soft, non-tender Skin: Warm, dry with normal turgor. Normal color with no rashes, no lesions, and no evidence of cellulitis. MS/ Extremity: Pulses equal, no cyanosis. Neurovascular intact. Full, normal range of motion. Equal circumference. Neuro: Awake and alert, GCS 15, oriented to person, place, time, and situation. Cranial nerves II-XII grossly intact. Motor strength 5/5 in all extremities. Sensory grossly intact. Cerebellar exam normal. Vital Signs: 13:58 BP 80 / 40; Pulse 75; Resp 16 S; Temp 97.6(O); Pulse Ox 98% ; Pain 0/10; aa5 14:02 BP 100 / 68; Pulse 77; Resp 16 S; Pulse Ox 98% on R/A; aa5 14:30 BP 118 / 82; Pulse 69; Resp 16 S; Temp 97.5(O); Pulse Ox 98% on R/A; aa5 15:10 BP 143 / 90; Pulse 67; Resp 18 S; Pulse Ox 98% on R/A; Pain 0/10; aa5 16:30 BP 140 / 82; Pulse 68; Resp 16 S; Pulse Ox 99% on R/A; Pain 0/10; aa5 MDM: 13:58 Patient medically screened. rn 17:15 Differential diagnosis: viral gastroenteritis, gastroenteritis. Data reviewed: vital rn signs, nurses notes. 17:27 Counseling: I had a detailed discussion with the patient and/or guardian regarding: the rn historical points, exam findings, and any diagnostic results supporting the discharge/admit diagnosis, lab results, radiology results, the need for outpatient follow up, to return to the emergency department if symptoms worsen or persist or if there are any questions or concerns that arise at home. 17:48 ED course: Pt back to baseline, no acute findings on CT abdomen, normal bloodwork, rn transition and asymptomatic, will dc home with instructions for rehydration.. 12/30 13:59 Order name: Basic Metabolic Panel; Complete Time: 15:00 rn 12/30 13:59 Order name: CBC with Diff; Complete Time: 15:00 rn 12/30 13:59 Order name: Hepatic Function; Complete Time: 15:00 rn 12/30 13:59 Order name: Lipase; Complete Time: 15:00 rn 12/30 13:59 Order name: CT Abd/Pelvis - W/Contrast; Complete Time: 16:43 rn 12/30 13:59 Order name: IV Saline Lock; Complete Time: 14:20 rn 12/30 13:59 Order name: Labs collected and sent; Complete Time: 14:20 rn Administered Medications: 14:20 Drug: NS 0.9% 1000 ml Route: IV; Rate: 1000 ml; Site: right wrist; aa5 15:20 Follow up: IV Status: Completed infusion; IV Intake: 1000ml aa5 14:46 Not Given (Physician Discretion): Zofran 4 mg IVP once; over 2 minutes aa5 18:11 Drug: LoMOTIL 2 tabs Route: PO; iw Disposition: 12/30/18 17:51 Discharged to Home. Impression: Diarrhea, unspecified, Dehydration. - Condition is Stable. - Discharge Instructions: Food Choices to Help Relieve Diarrhea, Adult, Dehydration, Adult, Diarrhea, Adult. - Medication Reconciliation Form, Thank You Letter, Antibiotic Education, Prescription Opioid Use form. - Follow up: Private Physician; When: As needed; Reason: Recheck today's complaints, Re-evaluation by your physician. - Problem is new. - Symptoms have improved. Signatures: Dispatcher [employer] EDCarrie Carias RN RN iw Pollo Drake MD MD rn Calderon, Audri, RN RN aa5 Corrections: (The following items were deleted from the chart) 18:11 17:51 12/30/2018 17:51 Discharged to Home. Impression: Diarrhea, unspecified; iw Dehydration. Condition is Stable. Forms are Medication Reconciliation Form, Thank You Letter, Antibiotic Education, Prescription Opioid Use. Follow up: Private Physician; When: As needed; Reason: Recheck today's complaints, Re-evaluation by your physician. Problem is new. Symptoms have improved. rn
[2018-12-30] MEDS ORDERED: DIPHENOX/ATROP SULF 1 TAB PO ONE (18:18)
== END 2018-12-30 18:11 | disposition home or self-care (01) ==
LOC: ER 13:54
DX: E86.0 Dehydration (principal); I10 Essential (primary) hypertension
CPT/HCPCS: 36415; 74177; 80048; 80076; 83690; 85025; 96360; 99285; J2405; J7030; Q9967

== ENCOUNTER 2019-09-24 12:27 | Observation (INO) | payer OTHER, SELFPAY ==
--- NOTE | 2019-09-24 13:32 | RAD REPORT ---
EXAM DESCRIPTION: RAD - Chest Single View - 09/24/2019 1:22 pm CLINICAL HISTORY: Chest pain;Dyspnea Chest pain. COMPARISON: Chest Single View dated 10/29/2018; Chest Pa And Lat (2 Views) dated 12/03/2016 FINDINGS: Portable technique limits examination quality. The lungs are emphysematous but grossly clear. The heart is normal in size. No displaced fractures. IMPRESSION: No acute intrathoracic process suspected.
[2019-09-24 14:07] LABS: Protime INR 0.96
[2019-09-24 14:12] LABS: Absolute Lymphocytes (CBC) 1.1 K/uL (0.7-4.9); Basophils % 0.5 % (0-1.3); Hematocrit 32.4 % (36.0-45.0); Lymphocytes % 33.8 % (15.3-44.8); MPV 9.7 fL (7.6-11.3); RBC Red Blood Cell Count 3.58 M/uL (3.86-4.86)
[2019-09-24 14:32] LABS: ALT/SGPT 16 U/L (12-78); AST/SGOT 25 U/L (15-37); Albumin 3.1 g/dL (3.4-5.0); Alkaline Phosphatase 98 U/L (45-117); BUN Blood Urea Nitrogen 17 mg/dL (7-18); Bicarbonate 23 mmol/L (21-32); Bilirubin Direct 0.8 mg/dL (0-0.2); Bilirubin Total 1.5 mg/dL (0.2-1.0); Glucose Level 107 mg/dL (74-106); Magnesium 1.7 mg/dL (1.8-2.4); NT PRO-BNP 769 pg/mL (<125); Potassium 3.8 mmol/L (3.5-5.1); Protein, Total 7.7 g/dL (6.4-8.2); Sodium Level 141 mmol/L (136-145); Troponin (Emerg Dept Use Only) 0.03 ng/mL (0.0-0.045)
--- NOTE | 2019-09-24 15:14 | RAD REPORT ---
EXAM DESCRIPTION: CT - Chest For Pe Angio - 09/24/2019 2:56 pm CLINICAL HISTORY: Chest pain COMPARISON: None. TECHNIQUE: Dynamically enhanced axial 3 mm thick images of the chest were obtained during administra tion of <100> mL Isovue 370 IV contrast. Coronal and oblique reconstruction images were generated and reviewed. Exam utilizes a protocol for optimal evaluation of pulmonary arterial tree. Maximum intensity projections 3D imaging was utilized All CT scans are performed using dose optimization technique as appropriate and may include automated exposure control or mA/KV adjustment according to patient size. FINDINGS: A pulmonary embolus is not seen. A thoracic aortic aneurysm is not noted. A pleural effusion is not seen. A pericardial effusion is not seen. A lung consolidation is not present. IMPRESSION: Negative for a pulmonary embolism.
--- NOTE | 2019-09-24 15:56 | ER ---
Nurse's Notes [facility] Name: Dara Giron Age: 58 yrs Sex: Female : 1960 Arrival Date: 09/24/2019 Time: 12:30 Bed 4 Private MD: Diagnosis: Chest pain, unspecified;Dyspnea Presentation: 09/24 12:30 Presenting complaint: Patient states: chest pain and SOB for months but it recently got sv worse. Pt has been taking Mavyret for 2 weeks. Transition of care: patient was not received from another setting of care. Onset of symptoms is unknown. Risk Assessment: Do you want to hurt yourself or someone else? Patient reports no desire to harm self or others. Care prior to arrival: None. 12:30 Method Of Arrival: Ambulatory sv 12:30 Acuity: LUI 2 sv 19:39 Initial Sepsis Screen: Does the patient meet any 2 criteria? No. Patient's initial aj1 sepsis screen is negative. Does the patient have a suspected source of infection? No. Patient's initial sepsis screen is negative. Triage Assessment: 12:30 General: Appears in no apparent distress. uncomfortable, slender, Behavior is sv cooperative, anxious. Pain: Complains of pain in chest. Neuro: Level of Consciousness is awake, alert, obeys commands, Gait is steady. Respiratory: Respiratory effort is shallow, Respiratory pattern is tachypnea. Historical: - Allergies: 12:32 No Known Allergies; sv - PMHx: 12:32 Hypertension; ocd; sv - PSHx: 12:32 right foot with screws and plates; sv - Immunization history:: Adult Immunizations up to date. - Social history:: Smoking status: Patient uses tobacco products, smokes one-half pack cigarettes per day. - Ebola Screening: : Patient denies travel to an Ebola-affected area in the 21 days before illness onset. Screenin:47 Abuse screen: Denies threats or abuse. Denies injuries from another. Nutritional aj1 screening: No deficits noted. Tuberculosis screening: No symptoms or risk factors identified. 19:39 Fall Risk No fall in past 12 months (0 pts). No secondary diagnosis (0 pts). IV access aj1 (20 points). Ambulatory Aid- None/Bed Rest/Nurse Assist (0 pts). Gait- Normal/Bed Rest/Wheelchair (0 pts) Mental Status- Oriented to own ability (0 pts). Total Leach Fall Scale indicates No Risk (0-24 pts). Assessment: 12:47 General: Appears comfortable, Behavior is cooperative, anxious. Pain: Complains of pain aj1 in anterior aspect of right upper chest and mid-sternal area Pain does not radiate. Pain currently is 5 out of 10 on a pain scale. Pain began months ago, but got worse over the past couple weeks. Neuro: Level of Consciousness is awake, alert, obeys commands, Oriented to person, place, time, situation, Speech is normal, Facial symmetry appears normal. Cardiovascular: Reports chest pain, Heart tones S1 S2 present Patient's skin is warm and dry. Rhythm is sinus tachycardia. Respiratory: Airway is patent Respiratory effort is even, unlabored, Respiratory pattern is regular, symmetrical, Breath sounds are clear bilaterally. GI: No signs and/or symptoms were reported involving the gastrointestinal system. : No signs and/or symptoms were reported regarding the genitourinary system. EENT: No signs and/or symptoms were reported regarding the EENT system. Derm: No signs and/or symptoms reported regarding the dermatologic system. Skin is pink, warm \T\ dry. normal. Musculoskeletal: No signs and/or symptoms reported regarding the musculoskeletal system. Circulation, motion, and sensation intact. 13:28 Reassessment: Patient appears in no apparent distress at this time. No changes from aj1 previously documented assessment. Patient and/or family updated on plan of care and expected duration. Pain level reassessed. Patient is alert, oriented x 3, equal unlabored respirations, skin warm/dry/pink. 14:13 Reassessment: Patient appears in no apparent distress at this time. No changes from aj1 previously documented assessment. Patient and/or family updated on plan of care and expected duration. Pain level reassessed. Patient is alert, oriented x 3, equal unlabored respirations, skin warm/dry/pink. 15:03 Reassessment: Patient and/or family updated on plan of care and expected duration. Pain aj1 level reassessed. General: Appears in no apparent distress. comfortable, Behavior is calm, cooperative, appropriate for age. Neuro: Level of Consciousness is awake, alert, obeys commands. Cardiovascular: Patient's skin is warm and dry. Rhythm is sinus rhythm. Respiratory: Airway is patent Respiratory effort is even, unlabored, Respiratory pattern is regular, symmetrical. Derm: No signs and/or symptoms reported regarding the dermatologic system. Skin is pink, warm \T\ dry. normal. Musculoskeletal: No signs and/or symptoms reported regarding the musculoskeletal system. Circulation, motion, and sensation intact. 16:15 Reassessment: Patient appears in no apparent distress at this time. No changes from aj1 previously documented assessment. Patient and/or family updated on plan of care and expected duration. Pain level reassessed. Patient is alert, oriented x 3, equal unlabored respirations, skin warm/dry/pink. 17:15 Reassessment: Patient appears in no apparent distress at this time. No changes from aj1 previously documented assessment. Patient and/or family updated on plan of care and expected duration. Pain level reassessed. Patient is alert, oriented x 3, equal unlabored respirations, skin warm/dry/pink. 18:21 Reassessment: Patient and/or family updated on plan of care and expected duration. Pain aj1 level reassessed. General: Appears in no apparent distress. comfortable, Behavior is calm, cooperative, appropriate for age. Neuro: Level of Consciousness is awake, alert, obeys commands, Oriented to person, place, time, situation, Speech is normal, Facial symmetry appears normal. Cardiovascular: Heart tones S1 S2 present Patient's skin is warm and dry. Rhythm is sinus rhythm. Respiratory: Airway is patent Respiratory effort is even, unlabored, Respiratory pattern is regular, symmetrical. Derm: No signs and/or symptoms reported regarding the dermatologic system. Skin is pink, warm \T\ dry. normal. Musculoskeletal: No signs and/or symptoms reported regarding the musculoskeletal system. Circulation, motion, and sensation intact. 19:38 Reassessment: Patient appears in no apparent distress at this time. No changes from aj1 previously documented assessment. Patient and/or family updated on plan of care and expected duration. Pain level reassessed. Patient is alert, oriented x 3, equal unlabored respirations, skin warm/dry/pink. Vital Signs: 12:32 BP 159 / 97; Pulse 117; Resp 26; Pulse Ox 100% ; Weight 44 kg; Height 5 ft. 3 in. sv (160.02 cm); 13:28 Pulse 99; Resp 18; Pulse Ox 98% on R/A; aj1 14:13 BP 153 / 97; Pulse 92; Resp 18; Pulse Ox 100% on R/A; aj1 15:04 BP 169 / 99; Pulse 85; Resp 18; Pulse Ox 100% on R/A; aj1 18:40 BP 129 / 83; Pulse 98; Resp 19; Pulse Ox 97% on R/A; Pain 4/10; jb1 19:38 BP 146 / 80; Pulse 82; Resp 18; Pulse Ox 95% on R/A; aj1 12:32 Body Mass Index 17.18 (44.00 kg, 160.02 cm) sv ED Course: 12:30 Patient arrived in ED. sv 12:32 Triage completed. sv 12:33 Arm band placed on. sv 12:37 Yunier Ngo PA is PHCP. jr8 12:37 Dragan Presley MD is Attending Physician. jr8 12:47 Mamie Zaidi RN is Primary Nurse. aj1 12:47 Patient has correct armband on for positive identification. Bed in low position. Call aj1 light in reach. Side rails up X 1. monitoring engineer on. Pulse ox on. NIBP on. 12:47 No provider procedures requiring assistance completed. Patient maintains SpO2 aj1 saturation greater than 95% on room air. 12:52 EKG done, by diesel technician. reviewed by Yunier REDDY. at1 13:25 XRAY Chest (1 view) In Process Unspecified. EDMS 15:01 CT Chest For PE Angio In Process Unspecified. EDMS 15:55 Marcel Cha MD is Referral Physician. jr8 16:06 Armond Grider is Hospitalizing Provider. jr8 19:39 Patient admitted, IV remains in place. aj1 Administered Medications: 19:19 CANCELLED (Patient Refused): Tylenol 650 mg PO once aj1 19:28 Drug: TORadol - Ketorolac 15 mg Route: IVP; Site: right forearm; aj1 19:39 Follow up: Response: No adverse reaction aj1 Outcome: 15:56 Discharge ordered by . jr8 16:06 Decision to Hospitalize by Provider. jr8 19:28 Admitted to Tele accompanied by tech, via wheelchair, room 215, with chart, Report fc called to [place] LE 19:39 Condition: stable aj1 19:57 Patient left the ED. aj1 Signatures: Dispatcher [employer] EDAK Roberto, Tato 1 Mamie Zaidi RN RN aj1 Janna Win RN RN Annalisa Smiley RN RN Yunier Roca PA PA [facility] Megan Daniels, fancy stitcher EK Tat1
--- NOTE | 2019-09-24 15:57 | EDPHYS ---
Physician Documentation [facility] Name: Dara Giron Age: 58 yrs Sex: Female : 1960 Arrival Date: 09/24/2019 Time: 12:30 Bed 4 Private MD: ED Physician Dragan Presley HPI: 09/24 14:10 This 58 yrs old Female presents to ER via Ambulatory with complaints of Chest jr8 Pain, Shortness Of Breath. 14:10 The patient has shortness of breath at rest. Onset: The symptoms/episode began/occurred jr8 gradually, 4 week(s) ago, and became worse and became persistent. Duration: The symptoms are continuous. The patient's shortness of breath is aggravated by light activity, walking. Associated signs and symptoms: Pertinent positives: chest pain. Severity of symptoms: At their worst the symptoms were moderate in the emergency department the symptoms are unchanged. The patient has not experienced similar symptoms in the past. The patient has been recently seen by a physician:. Patient stated that she started to have shortness of breath about 1 month ago. 3 weeks ago started on Mavyret for Hep C. Has had some mild itching and diarrhea which is side effects of medicine. Stated that shortness of breath has now recently worsened in past 2 days and now have chest pain . Historical: - Allergies: 12:32 No Known Allergies; sv - PMHx: 12:32 Hypertension; ocd; sv - PSHx: 12:32 right foot with screws and plates; sv - Immunization history:: Adult Immunizations up to date. - Social history:: Smoking status: Patient uses tobacco products, smokes one-half pack cigarettes per day. - Ebola Screening: : Patient denies travel to an Ebola-affected area in the 21 days before illness onset. ROS: 14:10 Eyes: Negative for injury, pain, redness, and discharge, ENT: Negative for injury, jr8 pain, and discharge, Neck: Negative for injury, pain, and swelling, Abdomen/GI: Negative for abdominal pain, nausea, vomiting, diarrhea, and constipation, Back: Negative for injury and pain, MS/Extremity: Negative for injury and deformity, Skin: Negative for injury, rash, and discoloration, Neuro: Negative for headache, weakness, numbness, tingling, and seizure. 14:10 Cardiovascular: Positive for chest pain, Negative for edema, orthopnea, palpitations, paroxysmal nocturnal dyspnea. 14:10 Respiratory: Positive for dyspnea on exertion, shortness of breath. Exam: 14:10 Eyes: Pupils equal round and reactive to light, extra-ocular motions intact. Lids and jr8 lashes normal. Conjunctiva and sclera are non-icteric and not injected. Cornea within normal limits. Periorbital areas with no swelling, redness, or edema. ENT: Nares patent. No nasal discharge, no septal abnormalities noted. Tympanic membranes are normal and external auditory canals are clear. Oropharynx with no redness, swelling, or masses, exudates, or evidence of obstruction, uvula midline. Mucous membranes moist. Neck: Trachea midline, no thyromegaly or masses palpated, and no cervical lymphadenopathy. Supple, full range of motion without nuchal rigidity, or vertebral point tenderness. No Meningismus. Cardiovascular: Regular rate and rhythm with a normal S1 and S2. No gallops, murmurs, or rubs. Normal PMI, no JVD. No pulse deficits. Abdomen/GI: Soft, non-tender, with normal bowel sounds. No distension or tympany. No guarding or rebound. No evidence of tenderness throughout. Back: No spinal tenderness. No costovertebral tenderness. Full range of motion. Skin: Warm, dry with normal turgor. Normal color with no rashes, no lesions, and no evidence of cellulitis. MS/ Extremity: Pulses equal, no cyanosis. Neurovascular intact. Full, normal range of motion. Neuro: Awake and alert, GCS 15, oriented to person, place, time, and situation. Cranial nerves II-XII grossly intact. Motor strength 5/5 in all extremities. Sensory grossly intact. Cerebellar exam normal. Normal gait. 14:10 Respiratory: the patient does not display signs of respiratory distress, Respirations: tachypnea, Breath sounds: are clear throughout, no bronchial sounds, no decreased breath sounds, no rales, rhonchi, no stridor, no wheezing. Vital Signs: 12:32 BP 159 / 97; Pulse 117; Resp 26; Pulse Ox 100% ; Weight 44 kg; Height 5 ft. 3 in. sv (160.02 cm); 13:28 Pulse 99; Resp 18; Pulse Ox 98% on R/A; aj1 14:13 BP 153 / 97; Pulse 92; Resp 18; Pulse Ox 100% on R/A; aj1 15:04 BP 169 / 99; Pulse 85; Resp 18; Pulse Ox 100% on R/A; aj1 18:40 BP 129 / 83; Pulse 98; Resp 19; Pulse Ox 97% on R/A; Pain 4/10; jb1 19:38 BP 146 / 80; Pulse 82; Resp 18; Pulse Ox 95% on R/A; aj1 12:32 Body Mass Index 17.18 (44.00 kg, 160.02 cm) sv MDM: 12:52 Patient medically screened. 8 15:52 Data reviewed: vital signs, nurses notes, lab test result(s), EKG, radiologic studies, jr CT scan, plain films. Data interpreted: Pulse oximetry: on room air is 100 %. Interpretation: normal. Counseling: I had a detailed discussion with the patient and/or guardian regarding: the historical points, exam findings, and any diagnostic results supporting the discharge/admit diagnosis, lab results, radiology results, the need for further work-up and treatment in the hospital. ED course: Discussed with patient that VS or stable. No acute findings on imaging. Shows COPD changes on xray with possible DANUTA on EKG. In the context of this could have pulmonary vascular changes such as Pulmonary HTN. Recommend Echocardiogram of heart and cardiology visit. Patient still short of breath. Will admit for echo and cards consult . 09/24 13:00 Order name: Basic Metabolic Panel; Complete Time: 14:59 [facility] 09/24 13:00 Order name: CBC with Diff; Complete Time: 14:23 [facility] 09/24 13:00 Order name: LFT's; Complete Time: 14:59 [facility] 09/24 13:00 Order name: Magnesium; Complete Time: 14:59 [facility] 09/24 13:00 Order name: NT PRO-BNP; Complete Time: 14:59 [facility] 09/24 13:00 Order name: PT-INR; Complete Time: 14:59 [facility] 09/24 13:00 Order name: Troponin (emerg Dept Use Only); Complete Time: 14:59 [facility] 09/24 13:00 Order name: XRAY Chest (1 view); Complete Time: 14:06 [facility] 09/24 13:00 Order name: EKG; Complete Time: 13:03 [facility] 09/24 13:00 Order name: DD; Complete Time: 14:59 [facility] 09/24 14:13 Order name: EKG Electrocardiogram; Complete Time: 14:59 [facility] 09/24 14:27 Order name: CT Chest For PE Angio; Complete Time: 15:44 [facility] 09/24 13:00 Order name: Cardiac monitoring; Complete Time: 13:05 [facility] 09/24 13:00 Order name: EKG - Nurse/Tech; Complete Time: 13:05 [facility] 09/24 13:00 Order name: IV Saline Lock; Complete Time: 14:12 [facility] 09/24 13:00 Order name: Labs collected and sent; Complete Time: 14:12 [facility] 09/24 13:00 Order name: O2 Per Protocol; Complete Time: 13:05 [facility] 09/24 13:00 Order name: O2 Sat Monitoring; Complete Time: 13:05 [facility] 09/24 16:31 Order name: Diet Regular; Complete Time: 16:31 [facility] 09/24 17:46 Order name: Diet Regular; Complete Time: 17:47 aj1 Administered Medications: 19:19 CANCELLED (Patient Refused): Tylenol 650 mg PO once aj1 19:28 Drug: TORadol - Ketorolac 15 mg Route: IVP; Site: right forearm; aj1 19:39 Follow up: Response: No adverse reaction aj1 Disposition: 09/25 07:20 Co-signature as Attending Physician, Dragan Presley MD I agree with the assessment and kdr plan of care. Disposition: 09/24/19 16:06 Hospitalization ordered by Armond Grider for Observation. Preliminary diagnosis are Chest pain, unspecified, Dyspnea. - Bed requested for Telemetry/MedSurg (observation). - Status is Observation. aj1 - Condition is Stable. - Problem is new. - Symptoms have improved. UTI on Admission? No Signatures: Dispatcher [employer] EDMI Mamie Zaidi RN RN aj1 Janna Win RN RN sv Rittger, Kevin, MD MD kdr Roszak, Josh, PA PA jr8 Joyce Diaz Corrections: (The following items were deleted from the chart) 09/24 16:06 15:56 09/24/2019 15:56 Discharged to Home. Impression: Shortness of breath; Chest pain, jr8 unspecified. Condition is Stable. Forms are Medication Reconciliation Form, Thank You Letter, Antibiotic Education, Prescription Opioid Use. Follow up: Marcel Cha; When: 1 - 2 days; Reason: Recheck today's complaints, Continuance of care, Re-evaluation by your physician. Problem is new. Symptoms have improved. 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 No acute findings on jr8 imaging. Shows COPD changes on xray with possible DAUNTA on EKG. In the context of this could have pulmonary vascular changes such as Pulmonary HTN. Recommend Echocardiogram of heart and cardiology visit. If worse to come back. Patient is good with this and will follow up . jr8 17:48 16:06 Hospitalization Ordered by Armond Grider for Observation. Preliminary diagnosis eb is Chest pain, unspecified; Dyspnea. Bed requested for Telemetry/MedSurg (observation). Status is Observation. Condition is Stable. Problem is new. Symptoms have improved. UTI on Admission? No. jr8 19:19 18:43 Tylenol 650 mg PO once ordered. aj1 aj1 19:57 17:48 09/24/2019 16:06 Hospitalization Ordered by Armond Grider for Observation. aj1 Preliminary diagnosis is Chest pain, unspecified; Dyspnea. Bed requested for Telemetry/MedSurg (observation). Status is Observation. Condition is Stable. Problem is new. Symptoms have improved. UTI on Admission? No. eb
--- NOTE | 2019-09-24 17:22 | EKG ---
Test Date: 2019-09-24 Test Time: 13:46:37 Outreach Analyst: CONSTANCE MEASUREMENT RESULTS: Intervals: Rate: 87 AK: 160 QRSD: 78 QT: 370 QTc: 445 [place]: P: 70 AK: 160 QRS: 68 T: 68 INTERPRETIVE STATEMENTS: Normal sinus rhythm Right atrial enlargement Septal infarct, age undetermined Abnormal ECG Compared to ECG 09/24/2019 12:39:13 Sinus tachycardia no longer present Myocardial infarct finding still present Electronically Signed On 09-24-19 17:21:30 FLEET SERVICE CLERK by Marcel Cha
--- NOTE | 2019-09-24 17:23 | EKG ---
Test Date: 2019-09-24 Test Time: 12:39:13 Ppap Coordinator: CHING MEASUREMENT RESULTS: Intervals: Rate: 117 CT: 156 QRSD: 72 QT: 324 QTc: 451 [place]: P: 76 CT: 156 QRS: 49 T: 68 INTERPRETIVE STATEMENTS: Sinus tachycardia Right atrial enlargement Cannot rule out Anteroseptal infarct, age undetermined Abnormal ECG Compared to ECG 11/03/2018 15:03:04 Atrial abnormality now present Myocardial infarct finding now present Sinus rhythm no longer present Electronically Signed On 09-24-19 17:21:35 PREP PERSON by Marcel Cha
--- NOTE | 2019-09-24 18:00 | P.HP ---
Certification for Inpatient Patient admitted to: Observation With expected LOS: <2 Midnights Practitioner: I am a practitioner with admitting privileges, knowledge of patient current condition, hospital course, and medical plan of care. Services: Services provided to patient in accordance with Admission requirements found in Title 42 Section 412.3 of the Code of Federal Regulations Patient History Date of Service: 09/27/19 Reason for admission: Shortness of breath History of Present Illness: 58 year old woman with a history of chronic hepatitis-C on 12 week course antiviral therapy, history of hypertension on lisinopril presented to the emergency department with a history of progressive shortness of breath which per patient, started since being on Mavyret. She reports rapid progression of her shortness of breath over the last couple of days and noted she was experiencing rapid heart rate. She saw her GI doctor who performed an EKG, noted her heart rate was 96 but in sinus rhythm. Patient was referred to the ED to be evaluated. She stated that she has cut down on smoking. She was not hypoxic in the ED. ED staff report the patient was noted to be very dyspneic with exertion and at rest. EKG demonstrated sinus rhythm, and possible right atrial enlargement. Initial troponin negative. BNP is moderately elevated. D-dimer was performed which was elevated. This was followed by CTA thorax which was negative for pulmonary embolism. Patient is placed under observation for further evaluation. Allergies No Known Allergies Allergy (Verified 09/24/19 20:41) Home Medications: Glecaprevir/Pibrentasvir [Mavyret 100-40 mg Tablet] 3 tab PO DAILY 09/24/19 Ibuprofen [Motrin*] 400 mg PO BID PRN 09/24/19 Paroxetine HCl [Paxil] 40 mg PO DAILY 09/24/19 Metoprolol Tartrate [Lopressor*] 25 mg PO BID #60 tab 09/25/19 - Past Medical/Surgical History -: Hypertension -: Chronic Hepatitis-C - Family History Family History: Reviewed- Non-Contributory - Social History Smoking Status: Current every day smoker Alcohol use: No CD- Drugs: No Caffeine use: Yes Place of Residence: Home Review of Systems Other: General: No fever, no malaise, no unintentional weight loss. Eyes: No eye discharge, Respiratory: No cough CVS: No chest pain, no lightheadedness. GI: No abdominal pain, no nausea no vomit, no constipation, no diarrhea. Genitourinary: No dysuria, no urinary frequency, no incontinence, no hematuria. Musculoskeletal: No joint pains, or joint swelling, no gait instability. Neurology: No headache, no asymmetric, weakness, no problem with swallowing. Except as documented, all other systems reviewed and negative. Physical Examination - Physical Exam General: Alert, In no apparent distress, Oriented x3 HEENT: Atraumatic, Normocephalic, PERRLA, Mucous membr. moist/pink, EOMI, Sclerae nonicteric Neck: Supple, JVD not distended, No Thyromegaly Respiratory: Clear to auscultation bilaterally, Normal air movement Cardiovascular: No edema, Normal pulses, Regular rate/rhythm, Normal S1 S2, No murmurs Capillary refill: <2 Seconds Gastrointestinal: Normal bowel sounds, Soft and benign, Non-distended, No tenderness Musculoskeletal: No swelling, No erythema Integumentary: No rashes, No erythema Neurological: Normal speech, Normal strength at 5/5 x4 extr - Studies Laboratory Data (last 24 hrs) 09/24/19 13:34: PT 11.4, INR 0.96 09/24/19 13:34: WBC 3.3 L, Hgb 11.0 L, Hct 32.4 L, Plt Count 152 09/24/19 13:34: Sodium 141, Potassium 3.8, BUN 17, Creatinine 0.64, Glucose 107 H, Magnesium 1.7 L, Total Bilirubin 1.5 H, AST 25, ALT 16, Alkaline Phosphatase 98 Assessment and Plan - Problems (Diagnosis) (1) Dyspnea Status: Acute (2) Essential hypertension Status: Acute (3) Elevated d-dimer Status: Acute (4) COPD (chronic obstructive pulmonary disease) Status: Acute - Plan Place under observation Continue to trend troponin Obtain echocardiogram Check TSH and free T4 Trial of bronchodilators. Telemetry Continue home dose lisinopril. Check a venous Doppler of lower extremities given significantly elevated D- dimer. - Advance Directives Does patient have a Living Will: No Does patient have a Durable POA for Healthcare: No
[2019-09-24] MEDS ORDERED: ACETAMINOPHEN 325 MG TABLET ONE (18:58)
[2019-09-24] MEDS ORDERED: KETOROLAC 30 MG/ML INJ ONE (19:22)
[2019-09-24] MEDS ORDERED: ACETAMINOPHEN 500 MG TAB PO PRN (20:10)
[2019-09-24 20:23] VITALS: BMI 17.0
[2019-09-24 21:15] LABS: Troponin I 0.02 ng/mL (0.0-0.045)
[2019-09-24] MEDS: NICOTINE 21 MG/PAT TD SCH (21:17)
[2019-09-24 21:49] LABS: Urine Appearance CLEAR; Urine Blood NEGATIVE (NEG); Urine Color DK YELLOW; Urine Glucose NEGATIVE (NEG); Urine Protein NEGATIVE (NEG); Urine Specific Gravity >=1.030 (1.005-1.030)
[2019-09-24 22:06] LABS: Urine Bilirubin NEGATIVE (NEG); Urine Microscopic Reflex ORDER UMIC
[2019-09-24 22:08] LABS: Calcium Oxalate Crystals- Ur MODERATE (NONE SEEN); Urine Bacteria 20-50 /HPF (<20); Urine Culture Reflex Order REFLEXED; Urine RBC NONE SEEN /HPF (NONE SEEN)
[2019-09-25] MEDS ORDERED: TEMAZEPAM 15 MG CAP PO ONE (00:20)
[2019-09-25 04:59] LABS: Absolute Lymphocytes (CBC) 1.1 K/uL (0.7-4.9); Basophils % 0.5 % (0-1.3); Hematocrit 30.9 % (36.0-45.0); Lymphocytes % 34.5 % (15.3-44.8); MPV 9.8 fL (7.6-11.3); RBC Red Blood Cell Count 3.43 M/uL (3.86-4.86)
[2019-09-25 05:24] LABS: BUN Blood Urea Nitrogen 22 mg/dL (7-18); Bicarbonate 24 mmol/L (21-32); Glucose Level 100 mg/dL (74-106); Sodium Level 140 mmol/L (136-145)
[2019-09-25 05:33] LABS: Urine White Blood Cell Casts OK
[2019-09-25 05:34] LABS: Blood Morphology Comment NOT SEEN (NOT SEEN); Platelet Estimate ADEQ
[2019-09-25] MEDS ORDERED: INFLUENZA VACCINE (for 3y+) 0.5 ML DOSE IMVAC ONE (06:00)
[2019-09-25] MEDS ORDERED: PNEUMOCOCCAL VACCINE 0.5 ML IMVAC ONE (06:00)
--- NOTE | 2019-09-25 07:06 | RAD REPORT ---
EXAM DESCRIPTION: US - Extrem Venous W Compress Alfredo - 09/24/2019 9:20 pm CLINICAL HISTORY: Leg pain and swelling, elevated D-dimer COMPARISON: None. TECHNIQUE: Real-time sonographic evaluation of the bilateral lower extremity common femoral, superfi cial femoral, popliteal and posterior tibial veins was performed. FINDINGS: Normal compressibility, flow augmentation, phasic flow and spontaneous flow are identified in the left and right lower extremity common femoral, superficial femoral, popliteal and posterior t ibial veins. No intraluminal filling defects seen. IMPRESSION: No DVT in either lower extremity.
[2019-09-25] MEDS: NICOTINE 21 MG/PAT TD SCH (08:38)
[2019-09-25] MEDS ORDERED: ENOXAPARIN 40 MG/0.4 ML SQ SCH (09:00)
[2019-09-25 09:09] LABS: Thyroid Stimulating Hormone < 0.005 uIU/mL (0.360-3.740)
[2019-09-25 09:33] VITALS: O2SAT 100
[2019-09-25] MEDS ORDERED: IBUPROFEN 400 MG TAB PO PRN (09:51)
--- NOTE | 2019-09-25 10:45 | ECHO ---
HEIGHT: 5 ft 3 in WEIGHT: 96 lb 4.8 oz DATE OF STUDY: 09/25/[address]: rasheeda mckinley 2-DIMENSIONAL: YES M.MODE: YES DOPPLER: YES COLOR FLOW: YES TDS: NO PORTABLE: NO DEFINITY: NO BUBBLE STUDY: NO DIAGNOSIS: DYSPNEA CARDIAC HISTORY: CATHERIZATION: NO SURGERY: NO PROSTHETIC VALVE: NO PACEMAKER: NO MEASUREMENTS (cm) DIASTOLIC (NORMALS) SYSTOLIC (NORMALS) IVSd 1.0 (0.6-1.2) LA Diam (1.9-4.0) LVEF 75% LVIDd 2.9 (3.5-5.7) LVIDs 1.7 (2.0-3.5) %FS 43% LVPWd 1.3 (0.6-1.2) Ao Diam 2.6 (2.0-3.7) 2 DIMENSIONAL ASSESSMENT: RIGHT ATRIUM: NORMAL LEFT ATRIUM: NORMAL RIGHT VENTRICLE: NORMAL LEFT VENTRICLE: NORMAL TRICUSPID VALVE: NORMAL MITRAL VALVE: NORMAL PULMONIC VALVE: NORMAL AORTIC VALVE: SCLEROSIS PERICARDIAL EFFUSION: NONE AORTIC ROOT: NORMAL LEFT VENTRICULAR WALL MOTION: NORMAL DOPPLER/COLOR FLOW: NORMAL COMMENTS: NORMAL LEFT VENTRICULAR SIZE AND FUNCTION. AORTIC SCLEROSIS WITH NO STENOSIS. NO WALL MOTION ABNORMALITY. NO EFFUSION. TECHNOLOGIST: John GRUBER
[2019-09-25 13:40] VITALS: BP 144/81; TEMP 98.9
--- NOTE | 2019-09-25 14:33 | P.DS ---
Admission Date: 09/24/19 Discharge Date: 09/25/19 Disposition: ROUTINE DISCHARGE Discharge Condition: FAIR Reason for Admission: Shortness of breath - Problems (1) Dyspnea Current Visit: Yes Status: Acute (2) Essential hypertension Current Visit: Yes Status: Acute (3) Elevated d-dimer Current Visit: Yes Status: Acute (4) COPD (chronic obstructive pulmonary disease) Current Visit: Yes Status: Acute Brief History of Present Illness: 58 year old woman with a history of chronic hepatitis-C on 12 week course antiviral therapy, history of hypertension on lisinopril presented to the emergency department with a history of progressive shortness of breath the patient started since being on Mavyret. She reported rapid progression of her shortness of breath over the last couple of days and noted she was experiencing rapid heart rate. She saw her GI doctor who performed an EKG, noted her heart rate was 96 but in sinus rhythm. Patient was referred to the ED to be evaluated. States that she has cut down on smoking. She was not hypoxic in the ED. ED staff reported the patient was noted to be very dyspneic with exertion and at rest. EKG demonstrated sinus rhythm, and possible right atrial enlargement. Initial troponin negative. BNP in moderately elevated. D-dimer was elevated. This was followed by CTA thorax which was negative for pulmonary embolism. Patient was placed under observation for further evaluation. Hospital Course: Troponin trended came back negative. Venous Doppler of the lower extremity done to follow up elevated D-dimer was negative for DVT. Telemetry recorder sinus tachycardia. TSH measured was markedly low along with high free T4 indicating clinical hyperthyroidism. Echocardiogram was unremarkable with normal EF and no significant valvular abnormality. The patient treated supportively with IV fluids. For treatment of hyperthyroidism, lisinopril for hypertension has been replaced with metoprolol. Patient is informed to follow with her PCP for further workup and management of the hyperthyroidism. She will need a thyroid scan and screen for Graves disease. She will also need referral to an knockup worker for treatment. The patient is made aware of this and she has voiced understanding. She stated that she will follow with her PCP next week. Italic rate has been in the 100s. BP is stable. She is deemed clinically stable for discharge. Vital Signs/Physical Exam: Temp Pulse Resp BP Pulse Ox 98.9 F 100 H 16 144/81 H 99 09/25/19 12:00 09/25/19 12:00 09/25/19 12:00 09/25/19 12:00 09/25/19 12:00 General: Alert, In no apparent distress, Oriented x3 HEENT: Mucous membr. moist/pink Neck: Supple, JVD not distended, No Thyromegaly Respiratory: Clear to auscultation bilaterally, Normal air movement Cardiovascular: No edema, Normal pulses, Normal S1 S2, Other (Tachycardic) Gastrointestinal: Normal bowel sounds, Soft and benign, Non-distended, No tenderness Musculoskeletal: No swelling, No erythema Neurological: Normal speech, Normal strength at 5/5 x4 extr Laboratory Data at Discharge: WBC 3.3 K/uL (4.3-10.9) L 09/25/19 04:14 Hgb 10.4 g/dL (12.0-15.0) L 09/25/19 04:14 Hct 30.9 % (36.0-45.0) L 09/25/19 04:14 Plt Count 139 K/uL (152-406) L 09/25/19 04:14 PT 11.4 SECONDS (9.5-12.5) 09/24/19 13:34 INR 0.96 09/24/19 13:34 Sodium 140 mmol/L (136-145) 09/25/19 04:14 Potassium 4.0 mmol/L (3.5-5.1) 09/25/19 04:14 BUN 22 mg/dL (7-18) H 09/25/19 04:14 Creatinine 0.66 mg/dL (0.55-1.3) 09/25/19 04:14 Glucose 100 mg/dL (74-106) 09/25/19 04:14 Magnesium 1.7 mg/dL (1.8-2.4) L 09/24/19 13:34 Total Bilirubin 1.5 mg/dL (0.2-1.0) H 09/24/19 13:34 AST 25 U/L (15-37) 09/24/19 13:34 ALT 16 U/L (12-78) 09/24/19 13:34 Alkaline Phosphatase 98 U/L (45-117) 09/24/19 13:34 Troponin I 0.02 ng/mL (0.0-0.045) 09/25/19 12:22 Triglycerides 130 mg/dL (<150) 09/24/19 20:38 Cholesterol 91 mg/dL (<200) 09/24/19 20:38 HDL Cholesterol 27 mg/dL (40-60) L 09/24/19 20:38 Cholesterol/HDL Ratio 3.37 09/24/19 20:38 Home Medications: Glecaprevir/Pibrentasvir [Mavyret 100-40 mg Tablet] 3 tab PO DAILY 09/24/19 Ibuprofen [Motrin*] 400 mg PO BID PRN 09/24/19 Paroxetine HCl [Paxil] 40 mg PO DAILY 09/24/19 Metoprolol Tartrate [Lopressor*] 25 mg PO BID #60 tab 09/25/19 New Medications: Metoprolol Tartrate [Lopressor*] 25 mg PO BID #60 tab Diet: AHA Activity: Ad ashley Followup: Alexnadre Wilkins MD [ACTIVE - CAN ADMIT] - 1-2 Weeks (please call to make an appointment. ) Time spent managing pt's care (in minutes): 27
[2019-09-25] MEDS ORDERED: lisinopriL 10 MG TAB PO SCH (21:00)
[2019-09-26] MEDS ORDERED: PARoxetine HCl 10 MG TAB PO SCH (09:00)
== END 2019-09-25 15:30 | disposition home or self-care (01) ==
LOC: ER 12:27 → ERHOLD 17:21 → 2ND 19:29
PROVIDERS: ADMIT Internal Medicine; ATTEND Internal Medicine
DX: R06.00 Dyspnea, unspecified (principal); J44.9 Chronic obstructive pulmonary disease, unspecified; R00.0 Tachycardia, unspecified; E05.90 Thyrotoxicosis, unspecified without thyrotoxic crisis or storm; I10 Essential (primary) hypertension; F17.200 Nicotine dependence, unspecified, uncomplicated; Z23 Encounter for immunization
CPT/HCPCS: 93005 ×2; 93306; 87088; 85025 ×2; 87086; 80048 ×2; 36415; 83735; 85610; 80061; 85379; 80076; 84443; 84484 ×4; 84439; 83880; 71275; 71045; 90471 ×2; 93970; 90670; 94760 ×2; 96374; 99285; Q9967; Q2035; J1650; G0378 ×3; 81003; 81015

== ENCOUNTER 2019-11-30 13:27 | Emergency (ER) | payer OTHER ==
--- OUTSIDE RECORDS SUMMARY | 2019-11-30 13:40 | XMS REPORT ---
:1960 Author Organization [facility] Address [address] [place] [address] Dr. Cali [address] [place] [id number] Care Team Providers Name Role Phone Unavailable Unavailable Unavailable Problems This patient has no known problems. Allergies, Adverse Reactions, Alerts This patient has no known allergies or adverse reactions. Medications This patient has no known medications.
[2019-11-30] MEDS ORDERED: hydrOXYzine HCL 25 MG TAB ONE (14:30)
[2019-11-30 14:32] LABS: Absolute Lymphocytes (CBC) 1.3 K/uL (0.7-4.9); Basophils % 0.5 % (0-1.3); Hematocrit 41.6 % (36.0-45.0); Lymphocytes % 20.3 % (15.3-44.8); MPV 8.8 fL (7.6-11.3); RBC Red Blood Cell Count 4.54 M/uL (3.86-4.86)
[2019-11-30 14:52] LABS: Albumin 3.4 g/dL (3.4-5.0); Bilirubin Direct 0.2 mg/dL (0-0.2); Bilirubin Total 0.6 mg/dL (0.2-1.0); Potassium 4.5 mmol/L (3.5-5.1)
[2019-11-30 14:56] LABS: Platelet Estimate ADEQ
[2019-11-30 14:57] LABS: Blood Morphology Comment NOT SEEN (NOT SEEN)
--- NOTE | 2019-11-30 15:35 | RAD REPORT ---
EXAM DESCRIPTION: CT - Abdomen Pelvis Wo Contrast - 11/30/2019 3:16 pm CLINICAL HISTORY: diarrhea, being treated for cdiff colitis Abdominal pain, diarrhea, existing treatment for C diff colitis COMPARISON: Abdomen Pelvis W Contrast dated 12/30/2018 TECHNIQUE: Axial [address] imaging of the abdomen and pelvis was performed without IV contrast. No IV contrast was given because of allergy, abnormal renal function, patient refusal or physician re quest. No oral contrast administered. All CT scans are performed using dose optimization technique as appropriate and may include automated exposure control or mA/KV adjustment according to patient size. FINDINGS: No suspicious findings in the lung bases. The liver, spleen and pancreas show no suspicious findings on non-contrast imaging. Gallbladder and b iliary tree are also without suspicious finding. No hydronephrosis or suspicious renal mass. No significant adrenal finding. Isodense renal masses an d pyelonephritis cannot be excluded in the absence of IV contrast. The urinary bladder is without sig nificant finding. No gastric dilatation or gastric wall thickening identified. No dilated large or small bowel. Mild wa ll thickening of the colon is present near the splenic flexure. Overall no significant or diffuse col on mucosal wall thickening. No free air or pneumatosis. No acute inflammatory stranding seen. No her lane or bulky lymphadenopathy. There is an 8.5 centimeter thin-walled cystic mass in the left side of the pelvis unchanged from prior study. No fat component. A punctate calcification is seen along the p osterior wall. Cystadenoma is favored. Size difference from the comparison may be true growth. Howeve r, the mass is likely easily deformable by adjacent structures which can distort the dimensions. Periaortic lymph nodes are present in a pattern similar to comparison. No bulky lymphadenopathy. No suspicious bony findings. IMPRESSION: No bowel obstruction, free air or surgically emergent finding. Mild colon wall thickening changes are present in would be consistent with the provided history of C diff colitis. Findings are relatively mild. A large 8.5 cm cystic mass in the left side pelvis measures larger than December 2018. Size change is small and the mass is likely easily deformable body adjacent structures which can distort dimensions . Full assessment is limited is the absence of IV contrast.
--- NOTE | 2019-11-30 16:30 | EDPHYS ---
Physician Documentation [facility] Name: Dara Giron Age: 59 yrs Sex: Female : 1960 Arrival Date: 11/30/2019 Time: 13:30 Bed 26 Private MD: ED Physician Pollo Drake HPI: 11/30 15:17 This 59 yrs old Female presents to ER via EMS with complaints of General rn Weakness, Diarrhea. 15:17 The patient presents to the emergency department with diarrhea. Onset: The rn symptoms/episode began/occurred 2 week(s) ago. Possible causes: unknown. Associated signs and symptoms: Pertinent positives: diarrhea, Pertinent negatives: abdominal pain, fever, GI bleeding. Severity of symptoms: At their worst the symptoms were moderate in the emergency department the symptoms have improved. The patient has experienced similar episodes in the past. The patient has not recently seen a physician. Reports generalized weakness, began again with diarrhea yesterday, has been battling diarrhea on and off for weeks, just had thyroid removed last week, neck is sore but otherwise doing ok. No fever. No GI bleeding. Reports taking abx for colitis, possibly c diff colitis. . Historical: - Allergies: 13:41 No Known Allergies; em - Home Meds: 13:41 levothyroxine oral [Active]; Calcium Carbonate Oral [Active]; cetirizine oral oral em [Active]; Metoprolol Tartrate Oral [Active]; Acetaminophen Oral [Active]; amlodipine oral [Active]; paroxetine oral oral [Active]; - PMHx: 13:41 Hypertension; ocd; hepatitis C; hyperthyroidism; Anemia; graves disease; c-diff; em - PSHx: 13:41 right foot with screws and plates; em 13:48 Thyroidectomy; em - Immunization history:: Adult Immunizations up to date. - Social history:: Smoking status: Patient/guardian denies using tobacco. - Ebola Screening: : Patient negative for fever greater than or equal to 101.5 degrees Fahrenheit, and additional compatible Ebola Virus Disease symptoms Patient denies exposure to infectious person Patient denies travel to an Ebola-affected area in the 21 days before illness onset No symptoms or risks identified at this time. - Family history:: not pertinent. - Hospitalizations: : No recent hospitalization is reported. ROS: 15:17 Constitutional: Negative for fever, chills, and weight loss, Eyes: Negative for injury, rn pain, redness, and discharge, Cardiovascular: Negative for chest pain, palpitations, and edema, Respiratory: Negative for shortness of breath, cough, wheezing, and pleuritic chest pain, Abdomen/GI: Negative for abdominal pain, nausea, vomiting, and constipation, MS/Extremity: Negative for injury and deformity, Skin: Negative for injury, rash, and discoloration, Neuro: Negative for headache, numbness, tingling, and seizure. Exam: 15:22 Constitutional: This is a well developed, well nourished patient who is awake, alert, rn anxious and tearful Head/Face: Normocephalic, atraumatic. ENT: dry MM Neck: Anterior midline incision C/D/I, no swelling or masses, no drains Cardiovascular: Regular rate and rhythm. No pulse deficits. Respiratory: Hyperventilating and emotional, speaking full sentences Abdomen/GI: soft, non-tender MS/ Extremity: Pulses equal, no cyanosis. Neurovascular intact. Full, normal range of motion. Equal circumference. Neuro: Awake and alert, GCS 15, oriented to person, place, time, and situation. Cranial nerves II-XII grossly intact. Motor strength 5/5 in all extremities. Sensory grossly intact. Vital Signs: 13:41 BP 145 / 96; Pulse 89; Resp 28; Temp 97.6(O); Pulse Ox 100% on R/A; Pain 0/10; em 15:27 BP 140 / 93; Pulse 81; Resp 20; Pulse Ox 100% on R/A; Pain 0/10; em 16:23 BP 125 / 85; Pulse 88; Resp 16 S; Pulse Ox 100% on R/A; ca1 MDM: 13:44 Patient medically screened. rn 16:27 Differential diagnosis: colitis, dehydration, cdiff. Data reviewed: vital signs, nurses rn notes, lab test result(s), radiologic studies, CT scan, and as a result, I will discharge patient. Counseling: I had a detailed discussion with the patient and/or guardian regarding: the historical points, exam findings, and any diagnostic results supporting the discharge/admit diagnosis, lab results, radiology results, the need for outpatient follow up, to return to the emergency department if symptoms worsen or persist or if there are any questions or concerns that arise at home. Response to treatment: the patient's symptoms have markedly improved after treatment, and as a result, I will discharge patient. Special discussion: I discussed with the patient/guardian in detail that at this point there is no indication for admission to the hospital. It is understood, however, that if the symptoms persist or worsen the patient needs to return immediately for re-evaluation. ED course: Pt improved, asking for food, well hydrated, ct shows mild colitis, and has known cdiff colitis and being treated with abx. Will dc home with oral hydration, continuation of abx, and pcp f/u. . 11/30 13:56 Order name: Basic Metabolic Panel; Complete Time: 15:04 rn 11/30 13:56 Order name: CBC with Diff rn 11/30 13:56 Order name: Creatinine for Radiology; Complete Time: 15:42 rn 11/30 13:56 Order name: Hepatic Function; Complete Time: 15:04 rn 11/30 13:56 Order name: Lipase; Complete Time: 15:04 rn 11/30 14:57 Order name: Manual Differential; Complete Time: 15:04 EDMS 11/30 13:56 Order name: IV Saline Lock; Complete Time: 13:58 rn 11/30 13:56 Order name: Labs collected and sent; Complete Time: 13:58 rn 11/30 15:12 Order name: Abdomen ; Complete Time: 15:42 EDMS Administered Medications: 14:17 Drug: NS 0.9% 1000 ml Route: IV; Rate: 1000 ml; Site: right hand; em 16:56 Follow up: IV Status: Completed infusion; IV Intake: 1000ml em 14:45 Drug: Atarax 50 mg Route: PO; em 16:39 Follow up: Response: No adverse reaction em Disposition: 11/30/19 16:29 Discharged to Home. Impression: Diarrhea, unspecified, Enterocolitis due to Clostridium difficile. - Condition is Stable. - Discharge Instructions: Dehydration, Adult, Diarrhea, Adult, Clostridium Difficile Infection. - Prescriptions for Hydroxyzine HCl 50 mg Oral Tablet - take 1 tablet by ORAL route every 8 hours As needed; 20 tablet. - Medication Reconciliation Form, Thank You Letter, Antibiotic Education, Prescription Opioid Use form. - Follow up: Private Physician; When: As needed; Reason: Recheck today's complaints, Re-evaluation by your physician. - Problem is new. - Symptoms have improved. Signatures: Dispatcher [employer] [facility] Stalin Perez RN RN em Nieto, Roman, MD MD rn informatics: (The following items were deleted from the chart) 15:11 13:56 Abdomen Pelvis W Con+CT.RAD.BRZ ordered. [facility] 16:56 16:29 11/30/2019 16:29 Discharged to Home. Impression: Diarrhea, unspecified; em Enterocolitis due to Clostridium difficile. Condition is Stable. Forms are Medication Reconciliation Form, Thank You Letter, Antibiotic Education, Prescription Opioid Use. Follow up: Private Physician; When: As needed; Reason: Recheck today's complaints, Re-evaluation by your physician. Problem is new. Symptoms have improved. rn
--- NOTE | 2019-11-30 16:30 | ER ---
Nurse's Notes [facility] Name: Dara Giron Age: 59 yrs Sex: Female : 1960 Arrival Date: 11/30/2019 Time: 13:30 Bed 26 Private MD: Diagnosis: Diarrhea, unspecified;Enterocolitis due to Clostridium difficile Presentation: 11/30 13:32 Presenting complaint: EMS states: called out for weakness, nausea and diarrhea, em recently had thyroid surgery at [facility] on , denies trouble swallowing, short of breath unable to speak without saying a few words at a time. Transition of care: patient was not received from another setting of care. Onset of symptoms was November 30, 2019. Risk Assessment: Do you want to hurt yourself or someone else? Patient reports no desire to harm self or others. Initial Sepsis Screen: Does the patient meet any 2 criteria? RR > 20 per min. Does the patient have a suspected source of infection? Yes: Dysuria/Frequency/Urgency/UTI. Care prior to arrival: Medication(s) given: Normal saline infusion, 200 mL IV initiated. 20 GA, in the right hand. 13:32 Method Of Arrival: EMS: [facility] em 13:32 Acuity: LUI 3 em Historical: - Allergies: 13:41 No Known Allergies; em - Home Meds: 13:41 levothyroxine oral [Active]; Calcium Carbonate Oral [Active]; cetirizine oral oral em [Active]; Metoprolol Tartrate Oral [Active]; Acetaminophen Oral [Active]; amlodipine oral [Active]; paroxetine oral oral [Active]; - PMHx: 13:41 Hypertension; ocd; hepatitis C; hyperthyroidism; Anemia; graves disease; c-diff; em - PSHx: 13:41 right foot with screws and plates; em 13:48 Thyroidectomy; em - Immunization history:: Adult Immunizations up to date. - Social history:: Smoking status: Patient/guardian denies using tobacco. - Ebola Screening: : Patient negative for fever greater than or equal to 101.5 degrees Fahrenheit, and additional compatible Ebola Virus Disease symptoms Patient denies exposure to infectious person Patient denies travel to an Ebola-affected area in the 21 days before illness onset No symptoms or risks identified at this time. - Family history:: not pertinent. - Hospitalizations: : No recent hospitalization is reported. Screenin:44 Abuse screen: Denies threats or abuse. Nutritional screening: No deficits noted. em Tuberculosis screening: No symptoms or risk factors identified. Fall Risk None identified. Assessment: 13:45 General: Appears in no apparent distress. comfortable, slender, Behavior is em cooperative, anxious, Denies fever. Pain: Denies pain. Neuro: Level of Consciousness is awake, alert, obeys commands, Oriented to person, place, time, situation, Appropriate for age. Cardiovascular: Capillary refill < 3 seconds Patient's skin is warm and dry. Rhythm is sinus rhythm. Respiratory: Airway is patent Respiratory effort is even, unlabored, Respiratory pattern is regular, tachypnea Breath sounds are clear bilaterally. GI: Reports diarrhea, nausea. Derm: Skin is intact, is healthy with good turgor, Skin is pink, warm \T\ dry. steri stripes noted to anterior of neck, no redness, swelling or drainage noted. Musculoskeletal: Capillary refill < 3 seconds, Range of motion: intact in all extremities. 14:40 Reassessment: Patient appears in no apparent distress at this time. reports itching em that has been going on for a month, scratch mosley noted to back and abdomen, provider notified. 15:21 Reassessment: Patient appears in no apparent distress at this time. Patient is alert, em oriented x 3, equal unlabored respirations, skin warm/dry/pink. anxiety has improved, pt still reports itchiness, provider notified. 16:35 Reassessment: Patient appears in no apparent distress at this time. Patient and/or em family updated on plan of care and expected duration. Pain level reassessed. Patient is alert, oriented x 3, equal unlabored respirations, skin warm/dry/pink. anxiety has improved. Vital Signs: 13:41 BP 145 / 96; Pulse 89; Resp 28; Temp 97.6(O); Pulse Ox 100% on R/A; Pain 0/10; em 15:27 BP 140 / 93; Pulse 81; Resp 20; Pulse Ox 100% on R/A; Pain 0/10; em 16:23 BP 125 / 85; Pulse 88; Resp 16 S; Pulse Ox 100% on R/A; ca1 ED Course: 13:30 Patient arrived in ED. ca1 13:32 Stalin Perez, RN is Primary Nurse. em 13:35 Triage completed. em 13:40 EKG done, by audiovisual tech. reviewed by Pollo Drake MD. at1 13:41 Arm band placed on. em 13:44 Pollo Drake MD is Attending Physician. rn 13:44 Patient has correct armband on for positive identification. Bed in low position. Call em light in reach. Side rails up X2. Adult w/ patient. teletypesetter monitor on. Pulse ox on. NIBP on. 15:18 Abdomen In Process Unspecified. EDMS 16:54 No provider procedures requiring assistance completed. IV discontinued, intact, em bleeding controlled, No redness/swelling at site. Pressure dressing applied. Administered Medications: 14:17 Drug: NS 0.9% 1000 ml Route: IV; Rate: 1000 ml; Site: right hand; em 16:56 Follow up: IV Status: Completed infusion; IV Intake: 1000ml em 14:45 Drug: Atarax 50 mg Route: PO; em 16:39 Follow up: Response: No adverse reaction em Intake: 16:56 IV: 1000ml; Total: 1000ml. em Outcome: 16:29 Discharge ordered by . rn 16:54 Discharged to home ambulatory. em 16:54 Condition: good 16:54 Discharge instructions given to patient, Instructed on discharge instructions, follow up and referral plans. medication usage, Demonstrated understanding of instructions, follow-up care, medications, Prescriptions given X 1. 16:56 Patient left the ED. em Signatures: Dispatcher [employer] [facility] Stalin Perez, RN RN em Pollo Drake MD MD rn Gonzales, Amanda, truck loader and unloader EKG Tat1 Christine Alvarez RN RN ca1
[2019-11-30 17:43] VITALS: TEMP 97.6; O2SAT 100
[2019-11-30 17:45] VITALS: BP 125/85
--- NOTE | 2019-12-01 20:59 | EKG ---
Test Date: 2019-11-30 Test Time: 13:38:22 Medication Assistant: CHING MEASUREMENT RESULTS: Intervals: Rate: 90 VT: 148 QRSD: 72 QT: 380 QTc: 464 [place]: P: 79 VT: 148 QRS: 67 T: 75 INTERPRETIVE STATEMENTS: Normal sinus rhythm Right atrial enlargement Septal infarct, age undetermined Abnormal ECG Compared to ECG 09/24/2019 13:46:37 No significant changes Electronically Signed On 12-01-19 20:55:34 SAMPLE TAKER OPERATOR by Marcel Cha
== END 2019-11-30 16:56 | disposition home or self-care (01) ==
LOC: ER 13:27
DX: A04.72 Enterocolitis due to Clostridium difficile, not specified as recurrent (principal); E05.90 Thyrotoxicosis, unspecified without thyrotoxic crisis or storm; I10 Essential (primary) hypertension; B19.20 Unspecified viral hepatitis C without hepatic coma; E05.00 Thyrotoxicosis with diffuse goiter without thyrotoxic crisis or storm
CPT/HCPCS: 36415; 74176; 80048; 80076; 83690; 85025; 93005; 96360; 96361; 99284